=== PATIENT | female | born 1965 | race Caucasian/White ===

== ENCOUNTER 2020-08-04 15:50 | Emergency (ER) | payer MEDICARE, SELFPAY ==
--- NOTE | ~2020-08-04 | XR_ITS ---
EXAMINATION: XR CHEST CLINICAL INFORMATION: Cough and shortness of breath COMPARISON: None TECHNIQUE: Frontal view of the chest was obtained. FINDINGS: No significant abnormality is noted involving the heart, lungs, mediastinum, bony thorax or soft tissues. XR/XR chest 1V IMPRESSION: Unremarkable examination.
[2020-08-04 16:37] VITALS: BP 169/90; PULSE 68; RESP 18; TEMP 36.7; O2SAT 99; BMI 49.8
--- NOTE | 2020-08-04 16:53 | ED_ITS ---
HPI - General Adult General Chief complaint: General Medical Stated complaint: sob,cough,congestion Time Seen by Provider: 08/04/20 16:23 Source: patient Mode of arrival: ambulatory Limitations: no limitations History of Present Illness HPI narrative: 55-year-old female previously healthy here with cough which is dry, worsened at night time with no associated shortness of breath, chest pain, leg swelling or pain. Taking [id number] cough medicine since Monday with continued symptoms. Grandson at home had COVID. Wants to be tested. Related Data Previous Rx's Medication Instructions Recorded azithromycin See Rx Instructions .ROUTE 08/04/20 .COMPLEX #6 tab benzonatate [Tessalon Perles] 100 mg PO TID PRN #20 cap 08/04/20 prednisone 40 mg PO DAILY #10 tab 08/04/20 Allergies Allergy/AdvReac Type Severity Reaction Status Date / Time No Known Allergies Allergy Verified 08/04/20 16:49 Review of Systems Review of Systems: Yes all other systems are reviewed and are negative Constitutional: Constitutional: Reports no additional constitutional complaints, Denies body ache(s), Denies chills, Denies fever(s), Denies headache(s) and Denies weakness Eyes: Eyes: Reports no additional eye complaints and Denies change in vision ENT: Reports system reviewed and no additional complaints, except as documented, Denies dizziness, Denies headache(s), Denies nasal congestion, Denies nasal discharge and Denies neck pain Cardiovascular: Cardiovascular: Reports no additional cardiovascular complaints, Denies chest pain, Denies leg edema and Denies dyspnea Respiratory: Respiratory: Reports no additional respiratory complaints, Reports cough and Denies dyspnea Gastrointestinal: Gastrointestinal: Reports no additional gastrointestinal complaints, Denies abdominal pain, Denies diarrhea, Denies nausea and Denies vomiting Genitourinary: Genitourinary: Reports no additional female genitourinary complaints and Denies urinary incontinence Musculoskeletal: Musculoskeletal: Reports no additional musculoskeletal complaints, Denies back pain, Denies arthralgias, Denies joint swelling, Denies neck pain, Denies numbness and Denies tingling Integumentary/Breasts: Skin/Breast: Reports system reviewed and no additional complaints, except as docu and Denies rash Neurologic: Reports system reviewed and no additional complaints, except as documented, Denies Abnormal speech present, Denies dizziness, Denies headache(s), Denies numbness, Denies tingling and Denies weakness PMFSH Past Medical History Attestation statement: The following information was validated with the patient. Source: old records reviewed and nursing notes reviewed Medical History No known health problems Social History Social History Advance Directives: No Advance Directives Information Provided: No Patient : No Physical Exam Vital Signs: Vital Signs: Last Vital Signs Temp 98.1 F 08/04/20 16:37 Pulse 68 08/04/20 16:37 Resp 18 08/04/20 16:37 BP 169/90 H 08/04/20 16:37 Pulse Ox 99 08/04/20 16:37 Body Mass Index 49.8 Const: General: cooperative, healthy appearing, comfortable and no acute distress Orientation/consciousness: patient oriented x3 Limitations: no limitations HENMT: Head: Yes normal to inspection Ears: hearing grossly normal bilaterally General nose exam: Normal external nose present Face and sinus: Yes normal facial exam Mouth: Normal oral and palatal mucosa present Throat: Yes posterior oropharynx normal Eyes: General: appearance normal, both eyes and all related structures Pupils: Equal, round and reactive pupils present Neck: Neck: Yes normal visual inspection Chest: Chest palpation & inspection: normal inspection of the chest Resp: Effort & Inspection: normal respiratory effort Auscultation: clear to auscultation bilaterally Cardio: Rate: regular rate Rhythm: regular rhythm Peripheral pulses: Peripheral pulses 2+ throughout GI: Inspection: Yes normal to inspection Palpation (GI): Soft to palpation and nontender Auscultation: normal bowel sounds Back/Spine/Pelvis: Thoracic/Lumbar Spine: thoracic and lumbar spine normal to inspection Skin: General skin exam: no rashes or lesions noted Neuro: General: patient oriented x3, no focal motor deficits and normal sensation to monofilament Cranial nerves: Yes Equal, round and reactive pupils present Cognition (Neuro): normal cognition Speech: No Abnormal speech present Gait exam (Neuro): Normal gait present Motor exam (neuro): 5/5 motor strength present throughout Extrem: General: Yes normal to inspection, Yes no pedal edema and Yes no calf tenderness Course Course Course Narrative: 55-year-old female here with cough for the last 1-2 weeks which is dry and worsened at night time unrelieved with [id number] cough medicine. Exam is benign. Clear lung sounds. Stable vital signs. No shortness of breath or chest pain. Will check chest x-ray and COVID screen. 1800-chest x-ray shows no acute finding. COVID screen negative. Likely bronchitis. Will treat with course of antibiotics and prednisone. Patient received 2 puffs of inhaler here with improvement of symptoms. Reviewed worrisome signs and symptoms of when to return to the emergency dep artment. Comfortable discharge home. Medical Decision Making Medical Records Medical records reviewed: Yes I reviewed the patient's medical records. Lab Data Lab results reviewed: Yes I reviewed the patient's lab results. Labs: Lab Results 08/04/20 Range/Units 17:09 COVID-19 ([facility]) Negative (Negative) COVID-19 Clin Com See Note Imaging Data Chest x-ray: Attestation: I personally reviewed and interpreted this imaging study as follows: Radiologist's impression: EXAMINATION: XR CHEST CLINICAL INFORMATION: Cough and shortness of breath COMPARISON: None TECHNIQUE: Frontal view of the chest was obtained. FINDINGS: No significant abnormality is noted involving the heart, lungs, mediastinum, bony thorax or soft tissues. XR/XR chest 1V IMPRESSION: Unremarkable examination. Discharge Plan Discharge Clinical Impression: Bronchitis Patient Disposition: Home, Self-Care Instructions: Acute Bronchitis (ED) Additional Instructions: Increase fluids, rest Your COVID test was negative today. your x-ray showed no signs of pneumonia Use inhaler every 4-6 hrs as needed for cough or wheezing Prescriptions: New prednisone 20 mg tablet 40 mg PO DAILY Qty: 10 RF: 0 azithromycin 250 mg tablet See Rx Instructions .ROUTE .COMPLEX Qty: 6 RF: 0 benzonatate [Tessalon Perles] 100 mg capsule 100 mg PO TID PRN (Reason: cough) Qty: 20 RF: 0 Interventions: ED Discharge Assessment Last Done: 08/04/20 18:10 Discharge Date/Time: 08/04/20 18:10
[2020-08-04 17:42] LABS: COVID-19 Test Negative (Negative)
[2020-08-04] MEDS: Albuterol Sulfate 90 MCG 8 GM INHALER 2 PUFF INHALE (18:07)
== END 2020-08-04 18:10 | disposition home or self-care (01) ==
PROVIDERS: Nurse Practitioner Family; Emergency Provider Internal Medicine
DX: J20.9 Acute bronchitis, unspecified (principal); Z20.822 Contact with and (suspected) exposure to COVID-19
CPT/HCPCS: 36415; 71045; 87635; 99282; 99284

== ENCOUNTER 2021-04-12 11:02 | Outpatient (REF) | payer MEDICARE, MEDICAID, SELFPAY ==
[2021-04-12 12:15] LABS: Binax Internal Control QC Valid; Binax Now Covid-19 Ag Negative (Negative)
== END 2021-04-12 11:03 | disposition home or self-care (01) ==
LOC: HO.LAB 11:02
PROVIDERS: Visit Provider Internal Medicine
DX: Z20.822 Contact with and (suspected) exposure to COVID-19 (principal)
CPT/HCPCS: C9803

== ENCOUNTER 2024-01-17 17:33 | Inpatient (IN) | payer MEDICARE, MEDICAID, SELFPAY ==
--- NOTE | ~2024-01-17 | CT_ITS ---
EXAMINATION: CTA NECK WITH CONTRAST (STROKE) CTA BRAIN WITH CONTRAST (STROKE) CLINICAL INFORMATION: Suspect acute stroke. Assess for major vessel occlusion. COMPARISON: None available. TECHNIQUE: CTA of the head and neck was performed in the axial plane from the mediastinum to the skull vertex using 70 mL Omnipaque 350 intravenous contrast. Additional reformatted multiplanar images including maximum intensity projection MIP images are generated on the CT workstation. This CT examination was performed using dose optimization techniques as appropriate, variously including the following: *Automated exposure control *Adjustment of mA and/or kV according to patient size (this includes techniques or standardized protocols for targeted exams where dose is matched to indication/reason for exam; i.e. extremities or head) *Use of iterative reconstruction technique DLP: 1668 mGy-cm FINDINGS: RIGHT COMMON CAROTID ARTERY:Unremarkable without significant stenosis RIGHT INTERNAL CAROTID ARTERY:Unremarkable, aside from retropharyngeal course RIGHT VERTEBRAL ARTERY:is patent without significant stenosis. LEFT COMMON CAROTID ARTERY:Unremarkable without significant stenosis LEFT INTERNAL CAROTID ARTERY:Unremarkable, aside from retropharyngeal course LEFT VERTEBRAL ARTERY:is patent without significant stenosis. CT ANGIOGRAM OF THE HEAD: Right vertebral artery Unremarkable Left vertebral artery:Unremarkable Basilar artery:Unremarkable Left posterior cerebral artery:Unremarkable Right posterior cerebral artery:Unremarkable Anterior cerebral arteries Unremarkable Right middle cerebral artery:Unremarkable Left middle cerebral artery: Unremarkable Venous sinuses are patent. Mild degenerative disease of the cervical spine. CT/CT angio head neck stroke IMPRESSION: 1. No hemodynamically significant stenosis in the carotid or vertebral arteries in the neck. 2. No large vessel occlusion or significant stenosis within the intracranial circulation. Electronically signed by: Tracie Quiroz MD 01/17/2024 08:24 PM EDT
--- NOTE | ~2024-01-17 | MR_ITS ---
EXAMINATION: MR BRAIN WITHOUT CONTRAST CLINICAL INFORMATION: CVA COMPARISON: None available. TECHNIQUE: MRI of the brain was obtained using routine sequences without contrast. FINDINGS: Acute infarct involving the right hemipons. No hemorrhagic transformation. Scattered and confluent periventricular and deep white matter T2/FLAIR hyperintensities, nonspecific however commonly seen with small vessel ischemic disease. No midline shift or hydrocephalus. No acute extra-axial fluid collections. The osseous structures are unremarkable. The pituitary gland, pineal gland and remaining midline structures are unremarkable. No orbital pathology. Mild mucosal thickening of the paranasal sinuses. The mastoid air cells are clear. MR/MR head/brain wo con IMPRESSION: Acute infarct involving the right hemipons. No hemorrhagic transformation. Electronically signed by: Jaquelin Saini MD 01/18/2024 10:58 AM EDT
--- NOTE | ~2024-01-17 | CT_ITS ---
EXAMINATION: CT HEAD WITHOUT CONTRAST CLINICAL INFORMATION: Stroke. COMPARISON: None available. TECHNIQUE: Contiguous axial imaging was performed from the skull base to vertex without intravenous administration of contrast. This CT examination was performed using dose optimization techniques as appropriate, variously including the following: *Automated exposure control. *Adjustment of mA and/or kV according to patient size (this includes techniques or standardized protocols for targeted exams where dose is matched to indication/reason for exam; i.e. extremities or head). *Use of iterative reconstruction technique. DLP: 982 mGy-cm FINDINGS: There is no evidence of acute intracranial hemorrhage or edematous territorial infarction. [place]-white matter differentiation is preserved. Scattered and partially confluent hypoattenuation in the periventricular and deep white matter most commonly seen with mild to moderate microangiopathy. The ventricles are normal in morphology and size. No evidence for obstructive hydrocephalus. No abnormal mass effect or midline shift. No extra-axial fluid collections. Calcific atherosclerotic disease of the intracranial internal carotid and vertebral arteries. No hyperdense vessel sign. No acute soft tissue or osseous abnormalities. Mild mucosal thickening of the paranasal sinuses. The mastoid air cells and middle ear cavities are clear. CT/CT head for stroke IMPRESSION: 1. No evidence of acute intracranial hemorrhage or edematous territorial infarction. 2. Mild to moderate nonspecific white matter changes. This critical result was discussed with LANCE Alcantara at 18:18 on 01/17/2024 and it was ascertained that the content and urgency of the report was understood at the time of direct communication. Electronically signed by: Bonilla Marrero DO 01/17/2024 06:21 PM EDT
--- NOTE | 2024-01-17 17:47 | ED.GENADULT ---
HPI - General Adult General Chief complaint: Stroke Stated complaint: left side is numb Time Seen by Provider: 01/17/24 18:09 Source: patient Limitations: no limitations History of Present Illness ED Provider: Nieves Moise PA-C HPI narrative: 58-year-old female who is morbidly obese presents with left-sided weakness x4 days. Patient states she noted weakness of the left upper extremity while trying to place her hair in a ponytail. Denies concurrent facial droop, slurred speech, visual changes. Denies recent illness. No fall associated with a new onset weakness. Patient is ambulatory at baseline, she states sometimes she stumbles to the right side. This has been an ongoing issue it is not new. Related Data Previous Rx's ?Medication ?Instructions ?Recorded azithromycin 250 mg tablet See Rx Instructions PO .COMPLEX #6 08/04/20 tabs benzonatate 100 mg capsule 100 mg PO TID PRN cough #20 caps 08/04/20 (Tessalon Perlkendall) prednisone 20 mg tablet 40 mg (2 x 20 mg) PO DAILY #10 tabs 08/04/20 Allergies Allergy/AdvReac Type Severity Reaction Status Date / Time No Known Allergies Allergy Verified 01/17/24 17:51 Review of Systems Review of Systems: Yes all other systems are reviewed and are negative Constitutional: Constitutional: Denies fatigue and Denies fever(s) Cardiovascular: Cardiovascular: Denies chest pain and Denies dyspnea Respiratory: Respiratory: Denies cough and Denies dyspnea Gastrointestinal: Gastrointestinal: Denies nausea and Denies vomiting Endocrine: Endocrine: Denies fatigue PMFSH Past Medical History Attestation statement: The following information was validated with the patient. Medical History No known health problems Social History Social History Smoked in Last 30 Days: No Use of substances other than those prescribed or required for medical reasons: No Advance Directives: No Advance Directives Information Provided: No Patient : No Physical Exam ED Vital Signs: Vital Signs - 24 hr 01/17/24 17:48 01/17/24 19:29 Temperature 98.0 F 97.1 F Pulse Rate 97 62 Respiratory Rate 20 20 Blood Pressure 105/84 187/75 H Pulse Oximetry 97 96 Oxygen Delivery Method Room Air Room Air BMI result Body Mass Index 52.8 Const Other: Alert, appears older than stated age Resp Other: Nonlabored respiration Cardio Other: Normal peripheral perfusion Skin Other: Warm dry no rash Extrem Other: Strength 5/5 bilateral upper and lower extremities with resistance, patient walks with a stable, antalgic gait, no ataxia noted, Romberg negative Psych Other: Cooperative, flat affect NIH Stroke Scale Level of Consciousness: Alert Level of Consciousness Questions: Answers both questions correctly Level of Consciousness Commands: Performs both tasks correctly Best Gaze: Normal Visual: No visual loss Facial Palsy: Normal Motor Arm (Right): No drift Motor Arm (Left): No drift Motor Leg (Right): No drift Motor Leg (Left): No drift Limb Ataxia: Absent Sensory: Normal Best Language: No aphasia Dysarthia: Normal Extinction and Inattention: No abnormality Score: 0 Course Course Course Narrative: This is an RME: Additional HPI, ROS, PE not included below will be deferred to primary provider. RME assessment and note performed by: Reshma Lopez PA-C This is a 58-year-old female, with no known medical problems, who presents emergency department with complaints of left-sided weakness and left-sided facial droop since waking up yesterday morning. She states that she was tired and did not want to come into the emergency room. On my assessment, patient has notable left-sided facial droop, decreased strength in her left upper extremity and lower left extremity. +pronator drift on the left. Plan: Stroke alert. pt immediately brought back to CT and main ER. Medications Administered Discontinued Medications Generic Name Dose Route Start Last Admin Trade Name Scout PRN Reason Stop Dose Admin Iohexol 100 ml 01/17/24 18:29 01/17/24 18:29 Iohexol 350 Mg/Ml 100 Ml Infus..Btl IV 01/17/24 18:30 70 ml ONCE ONE Administration Procedures Procedure Narrative Procedure Narrative: Ultrasound-guided IV 18 gauge 1-3/4 inch catheter placed in the right upper extremity. Adequate blood return, flushes well, secured with Tegaderm Medical Decision Making Medical Decision Making MDM Narrative: 58-year-old female who is morbidly obese presents with left-sided weakness x4 days. Patient states she noted weakness of the left upper extremity while trying to place her hair in a ponytail. Denies concurrent facial droop, slurred speech, visual changes. Denies recent illness. No fall associated with a new onset weakness. Patient is ambulatory at baseline, she states sometimes she stumbles to the right side. This has been an ongoing issue it is not new. Problem: Age and obesity History: Per patient I have considered the following differential diagnoses: Stroke, musculoskeletal strain, cervical radiculopathy, gait instability secondary to habitus Plan: Patient is assessment began from triage, she was initiated as a stroke alert. She is already at CT. Screening labs and an EKG we will be obtained. I am also adding on an ethanol, urinalysis and drug screen. Patient does not have a mechanism of injury to suggest a cervical radiculopathy. The patient ambulated normally for me, I am not getting a sense of ataxia to suggest a posterior circulation CVA, and she also was not dizzy. Thus far her exam was completely benign. I have independently reviewed the following tests: Labs: EKG: Normal sinus rhythm, rate of 71, incomplete right bundle, no ischemic changes CT brain: CT HEAD WITHOUT CONTRAST CLINICAL INFORMATION: Stroke. COMPARISON: None available. TECHNIQUE: Contiguous axial imaging was performed from the skull base to vertex without intravenous administration of contrast. This CT examination was performed using dose optimization techniques as appropriate, variously including the following: *Automated exposure control. *Adjustment of mA and/or kV according to patient size (this includes techniques or standardized protocols for targeted exams where dose is matched to indication/reason for exam; i.e. extremities or head). *Use of iterative reconstruction technique. DLP: 982 mGy-cm FINDINGS: There is no evidence of acute intracranial hemorrhage or edematous territorial infarction. [place]-white matter differentiation is preserved. Scattered and partially confluent hypoattenuation in the periventricular and deep white matter most commonly seen with mild to moderate microangiopathy. The ventricles are normal in morphology and size. No evidence for obstructive hydrocephalus. No abnormal mass effect or midline shift. No extra-axial fluid collections. Calcific atherosclerotic disease of the intracranial internal carotid and vertebral arteries. No hyperdense vessel sign. No acute soft tissue or osseous abnormalities. Mild mucosal thickening of the paranasal sinuses. The mastoid air cells and middle ear cavities are clear. CT/CT head for stroke IMPRESSION: 1. No evidence of acute intracranial hemorrhage or edematous territorial infarction. 2. Mild to moderate nonspecific white matter changes. This critical result was discussed with LANCE Alcantara at 18:18 on 01/17/2024 and it was ascertained that the content and urgency of the report was understood at the time of direct communication. Electronically signed by: Bonilla Marrero DO 01/17/2024 06:[address] angio head and neck:CTA NECK WITH CONTRAST (STROKE) CTA BRAIN WITH CONTRAST (STROKE) CLINICAL INFORMATION: Suspect acute stroke. Assess for major vessel occlusion. COMPARISON: None available. TECHNIQUE: CTA of the head and neck was performed in the axial plane from the mediastinum to the skull vertex using 70 mL Omnipaque 350 intravenous contrast. Additional reformatted multiplanar images including maximum intensity projection MIP images are generated on the CT workstation. This CT examination was performed using dose optimization techniques as appropriate, variously including the following: *Automated exposure control *Adjustment of mA and/or kV according to patient size (this includes techniques or standardized protocols for targeted exams where dose is matched to indication/reason for exam; i.e. extremities or head) *Use of iterative reconstruction technique DLP: 1668 mGy-cm FINDINGS: RIGHT COMMON CAROTID ARTERY:Unremarkable without significant stenosis RIGHT INTERNAL CAROTID ARTERY:Unremarkable, aside from retropharyngeal course RIGHT VERTEBRAL ARTERY:is patent without significant stenosis. LEFT COMMON CAROTID ARTERY:Unremarkable without significant stenosis LEFT INTERNAL CAROTID ARTERY:Unremarkable, aside from retropharyngeal course LEFT VERTEBRAL ARTERY:is patent without significant stenosis. CT ANGIOGRAM OF THE HEAD: Right vertebral artery Unremarkable Left vertebral artery:Unremarkable Basilar artery:Unremarkable Left posterior cerebral artery:Unremarkable Right posterior cerebral artery:Unremarkable Anterior cerebral arteries Unremarkable Right middle cerebral artery:Unremarkable Left middle cerebral artery: Unremarkable Venous sinuses are patent. Mild degenerative disease of the cervical spine. CT/CT angio head neck stroke IMPRESSION: 1. No hemodynamically significant stenosis in the carotid or vertebral arteries in the neck. 2. No large vessel occlusion or significant stenosis within the intracranial circulation. Electronically signed by: Tracie Quiroz MD 01/17/2024 08:24 PM EDT RP Lab Data 01/17/24 19:15 01/17/24 19:15 Labs: Lab Results 01/17/24 01/17/24 01/17/24 Range/Units 18:38 18:47 19:15 WBC 9.4 (4.8-10.8) X10*3/uL RBC 4.59 (4.20-5.50) X10*6/uL Hgb 13.8 (12.0-16.0) g/dl Hct 39.1 (37.0-47.0) % MCV 85.2 (80.0-98.0) fL MCH 30.1 (27.0-33.0) pg MCHC 35.3 H (31.0-35.0) g/dl RDW 13.2 (11.0-16.0) % Plt Count 337 (160-400) X10*3/uL MPV 8.8 L (9.4-12.3) fL Immature Gran % (Auto) 0.4 (0.0-0.4) % Neut % (Auto) 63.0 (45-73) % Lymph % (Auto) 25.8 (20-40) % Braxton % (Auto) 7.5 (2-11) % Eos % (Auto) 2.7 (0-4) % Baso % (Auto) 0.6 (0-2) % Lymph # (Auto) 2.4 (1.2-4.9) X10*3/uL Braxton # (Auto) 0.7 (0.1-1.2) X10*3/uL Eos # (Auto) 0.3 (0.0-0.4) X10*3/uL Baso # (Auto) 0.1 (0.0-0.2) X10*3/uL Abs Immat Gran (auto) 0.04 H (0.00-0.03) X10*3/uL Absolute Neuts (auto) 5.9 (2.0-8.3) x10*3/uL Absolute Nucleated RBC 0.000 (0.0-0.012) X10*3/uL Nucleated RBC % (auto) 0.0 (0.0-0.2) /100WBC PT 11.7 (10.9-12.4) SEC Whole Blood PT 12.0 (11.1-13.5) sec INR 1.0 (0.9-1.1) Whole Blood INR 1.0 (0.9-1.1) APTT 29.2 (26.0-36.8) SEC Sodium 140 (135-145) mmol/L Potassium 4.1 (3.3-5.1) mmol/L Chloride 103 (96-108) mmol/L Carbon Dioxide 29 (22-29) mmol/L Anion Gap 12 (12-20) BUN 12 (9-16) mg/dL Creatinine 0.75 (0.5-1.4) mg/dL Estim Creat Clear Calc 117.1 Estimated GFR > 60 POC Glucose 149 H (60-115) mg/dL Random Glucose 115 (60-115) mg/dL Calcium 9.8 (8.4-10.2) mg/dL Troponin I High Sens < 2.7 (<3.5-17.0) ng/L Triglycerides 155 H (<150) mg/dL Cholesterol 186 (<200) mg/dL LDL Cholesterol, Calc 120 H (<100) mg/dL HDL Cholesterol 35 L (>40) mg/dL Ethyl Alcohol < 10 mg/dL Discharge Plan Discharge Clinical Impression: Left-sided weakness Patient Disposition: Admitted As Inpatient Prescriptions: No Action prednisone 20 mg tablet 40 mg PO DAILY Qty: 10 0RF azithromycin 250 mg tablet See Rx Instructions .ROUTE .COMPLEX Qty: 6 0RF Rx Instructions: take 500 mg today (day 1), then 250 mg for 4 days (days 2-5) benzonatate [Tessalon Perles] 100 mg capsule 100 mg PO TID PRN (Reason: cough) Qty: 20 0RF Print Language: Indonesian
[2024-01-17 17:48] VITALS: BP 105/84; PULSE 97; RESP 20; TEMP 36.7; O2SAT 97; BMI 52.8
--- NOTE | 2024-01-17 17:55 | ECG_ITS ---
Test Reason : stroke protool Blood Pressure : / mmHG Vent. Rate : 071 BPM Atrial Rate : 071 BPM P-R Int : 166 ms QRS Dur : 114 ms QT Int : 392 ms P-R-T Axes : 040 032 038 degrees QTc Int : 425 ms Normal sinus rhythm Incomplete right bundle branch block Borderline ECG No previous ECGs available Referred By: Reshma Lopez Electronically Signed By:Flynn Sims
[2024-01-17] MEDS: iohexoL 350 MG/ML 100 ML INFUS..BTL IV (18:29)
--- NOTE | 2024-01-17 18:31 | PC.NURSE ---
patient through external triage, patient states she has been experiencing weakness on her left side for the last 4 days. daughter states she made her aware of how she was feeling yesterday, states she was unable to get out of bed and did not want to come but convinced patient to come in. Delay in care due to patient being difficult stick, multiple attempts to obtain IV access for CT scan after dry scan, 20g IV able to be placed in left shoulder. patient with difficult time transferring onto CT scan, able to move upper extremeties, difficult time moving lower extremities.
[2024-01-17 18:53] LABS: Glucose, Whole Blood 149 mg/dL (60-115)
[2024-01-17 19:21] LABS: MANUAL DIFF FLAG NO
[2024-01-17 19:26] LABS: Basophils Absolute Auto 0.1 X10*3/uL (0.0-0.2); Basophils Percent Auto 0.6 % (0-2); Eosinophils Absolute Auto 0.3 X10*3/uL (0.0-0.4); Eosinophils Percent Auto 2.7 % (0-4); Hematocrit 39.1 % (37.0-47.0); Hemoglobin 13.8 g/dl (12.0-16.0); Imm Gran Abs Auto 0.04 X10*3/uL (0.00-0.03); Imm Gran Pct Auto 0.4 % (0.0-0.4); Lymphocytes Absolute Auto 2.4 X10*3/uL (1.2-4.9); Lymphocytes Percent Auto 25.8 % (20-40); Mean Corpuscular HGB Conc 35.3 g/dl (31.0-35.0); Mean Corpuscular Hemoglobin 30.1 pg (27.0-33.0); Mean Corpuscular Volume 85.2 fL (80.0-98.0); Mean Platelet Volume 8.8 fL (9.4-12.3); Monocytes Absolute Auto 0.7 X10*3/uL (0.1-1.2); Monocytes Percent Auto 7.5 % (2-11); Neutrophils Absolute Auto 5.9 x10*3/uL (2.0-8.3); Platelet Count 337 X10*3/uL (160-400); Red Blood Count 4.59 X10*6/uL (4.20-5.50); Red Cell Distribution Width 13.2 % (11.0-16.0); White Blood Count 9.4 X10*3/uL (4.8-10.8)
[2024-01-17 19:29] VITALS: BP 187/75; PULSE 62; RESP 20; TEMP 36.2; O2SAT 96
[2024-01-17 19:29] LABS: Prothrombin Time 11.7 SEC (10.9-12.4)
--- NOTE | 2024-01-17 19:29 | PC.NURSE ---
this rn assumed care of patient, janneth shelby at bedside placing ultrasound guided iv 20g in right upper arm. labs obtained. pt changed into hospital gown, placed on tele. pt a&ox4, reports weakness since monday. pt states she is able to get out of bed but states she is walking to the right . pt ambulated with steady and even gait to bathroom. unable to obtain urine at this time. janneth shelby aware of pt BP.
[2024-01-17 19:32] LABS: Partial Thromboplastin Time 29.2 SEC (26.0-36.8)
[2024-01-17 19:37] LABS: Stroke Lab Use COMPLETE
[2024-01-17 19:45] LABS: Ethanol < 10 mg/dL
[2024-01-17 19:47] LABS: Anion Gap 12 (12-20); Blood Urea Nitrogen 12 mg/dL (9-16); Calcium 9.8 mg/dL (8.4-10.2); Carbon Dioxide 29 mmol/L (22-29); Chloride 103 mmol/L (96-108); Cholesterol 186 mg/dL (<200); Creatinine Clr Calc Pharmacy 117.1; Estimated Glomerular Filt Rate > 60; Glucose Random 115 mg/dL (60-115); HDL Cholesterol 35 mg/dL (>40); LDL Cholesterol Calculated 120 mg/dL (<100); Potassium 4.1 mmol/L (3.3-5.1); Sodium 140 mmol/L (135-145); Triglycerides 155 mg/dL (<150)
[2024-01-17 19:55] LABS: Troponin-I High Sensitivity < 2.7 ng/L (<3.5-17.0)
--- NOTE | 2024-01-17 20:34 | P.HPHOSP_ITS ---
History of Present Illness Date of Service: 01/17/24 <[address] - Last Filed: 01/17/24 21:54> Attending physician on admission: Delgado Mcbride <LANCE Street - Last Filed: 01/17/24 21:54> Chief Complaint: Left-sided numbness and weakness <LANCE Street - Last Filed: 01/17/24 21:54> Pt is a 58-year-old female with no reported significant PMH not on home meds who presents to the ED with?left-sided weakness. Pt reports symptoms began on Monday when she put her hair into a ponytail and thinks she pulled a muscle in either her back or neck. Woke up on Monday with pain in the back of her neck and shoulder that was alleviated with massaging. On Monday patient woke and found she had left-sided weakness. Reports ?walking into everything, since Monday, including walters, doors, and furniture. Today patient found she could not get out of her car due to left-sided weakness, and thus decided to present to the emergency room. Denies difficulty speaking, swelling, or facial droop. No numbness or tingling in extremities. Denies headache or acute vision changes. No dysarthria or difficulty word finding. 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 No chest pain/pressure, palpitations. No shortness a breath or difficulty breathing. Denies fever, chills, nausea, vomiting, abdominal pain. No changes to bowel or bladder habits. In the ED pt was hypertensive up to 187/75, vitals otherwise stable and WNL. Labs were significant for mildly elevated triglycerides, LDL, and low HDL. No leukocytosis. Stable H&H. No electrolyte abnormalities. Renal function WNL. CT?of head negative for acute intracranial hemorrhage or edematous territorial infarction, though did show [id number] nonspecific white matter changes. CTA of head/neck found no hemodynamically significant stenosis and no large vessel occlusion in either head or neck. EKG demonstrated normal sinus rhythm without significant ST elevations or depressions. Pt will be admitted to the hospital for left-sided weakness concerning for CVA. <LANCE Street - Last Filed: 01/17/24 21:54> Review of Systems 2 Review of Systems: Yes all other systems are reviewed and are negative < LANCE Street - Last Filed: 01/17/24 21:54> [facility] Medical History: Medical History No known health problems <LANCE Street - Last Filed: 01/17/24 21:54> Social History: Social History Smoked in Last 30 Days: No Use of substances other than those prescribed or required for medical reasons: No Advance Directives: No Advance Directives Information Provided: No Patient : No <LANCE Street - Last Filed: 01/17/24 21:54> Meds Allergies/Adverse reactions: Allergies Allergy/AdvReac Type Severity Reaction Status Date / Time No Known Allergies Allergy Verified 01/17/24 17:51 <[address] - Last Filed: 01/17/24 21:54> Active Medications: Current Medications Acetaminophen (Acetaminophen 325 Mg Tablet) 650 mg PO Q6H PRN PRN Reason: Pain, Mild (Pain Scale 1-3), fever or headache Aspirin (Aspirin 81 Mg Tab.Chew) 81 mg PO ONCE ONE Stop: 01/17/24 20:30 Aspirin (Aspirin 81 Mg Tab.Chew) 81 mg PO DAILY [facility] Atorvastatin Calcium (Atorvastatin Calcium 40 Mg Tablet) 40 mg PO BEDTIME [facility] Calcium Carbonate (Calcium Carbonate 750 Mg Tab.Chew) 750 mg PO Q4H PRN PRN Reason: Heartburn Enoxaparin Sodium (Enoxaparin Sodium 40 Mg/0.4 Ml Syringe) 40 mg SUBCUT Q24H [facility] Magnesium Hydroxide (Milk Of Magnesia 30 Ml Oral.Susp) 30 ml PO DAILY PRN PRN Reason: Constipation Melatonin (Melatonin 3 Mg Tablet) 6 mg PO BEDTIME PRN PRN Reason: Insomnia Ondansetron HCl (Ondansetron Hcl 4 Mg/2 Ml Vial) 4 mg IVPUSH Q8H PRN PRN Reason: Nausea and Vomiting Sodium Chloride (0.9 % Sodium Chloride Flush 3 Ml Syringe) 3 ml IVFLUSH QSHIFT DAVIE <LANCE Street - Last Filed: 01/17/24 21:54> Home medications: Home Medications ?Medication ?Instructions ?Recorded ?Confirmed ?Last Taken ?Type No Known Home Meds 01/17/24 01/17/24 Unknown History <LANCE Street - Last Filed: 01/17/24 21:54> Physical Exam 2 Vital Signs and Narrative: Vital Signs: Last Vital Signs Temp 97.1 F 01/17/24 19:29 Pulse 62 01/17/24 19:29 Resp 20 01/17/24 19:29 BP 187/75 H 01/17/24 19:29 Pulse Ox 96 01/17/24 19:29 O2 Del Method Room Air 01/17/24 19:29 BMI result Body Mass Index 52.8 <[address] - Last Filed: 01/17/24 21:54> Constitutional: Alert, in no acute distress. Mental Status: Oriented to person, place and time. Eyes: Pupils are equal, round, and reactive to light. Ear, Nose, and Throat: Oropharynx clear, mucous membranes moist. Ears and nose without deformities. Trachea midline. Respiratory: Clear to auscultation bilaterally. No wheezing, rales, or rhonchi. Cardiovascular: S1, S2 regular. No murmurs, rubs, or gallops. Gastrointestinal: Abdomen soft, non-tender, non-distended, obese. Normal bowel sounds. Neurologic: Left-sided weakness of upper and lower extremities. Positive left pronator drift. Preserved sensation to light touch of upper and lower extremities bilaterally. No other focal deficits noted. Skin: Warm, dry. Musculoskeletal: No cyanosis or clubbing. Extremities: Bilateral symmetric lymphedema. Chronic right upper extremity contracture of 3rd-5th digits. Psychiatric: Normal mood and affect. <LANCE Street - Last Filed: 01/17/24 21:54> Results Labs CBC and Chem 7: 01/17/24 19:15 01/17/24 19:15 <[address] - Last Filed: 01/17/24 21:54> Labs: Laboratory Results - last 24 hr 01/17/24 01/17/24 01/17/24 18:38 18:47 19:15 MCV 85.2 MCH 30.1 MCHC 35.3 H RDW 13.2 Plt Count 337 MPV 8.8 L Immature Gran % (Auto) 0.4 Neut % (Auto) 63.0 Lymph % (Auto) 25.8 [place] % (Auto) 7.5 Eos % (Auto) 2.7 Baso % (Auto) 0.6 Lymph # (Auto) 2.4 [place] # (Auto) 0.7 Eos # (Auto) 0.3 Baso # (Auto) 0.1 Abs Immat Gran (auto) 0.04 H Absolute Neuts (auto) 5.9 Absolute Nucleated RBC 0.000 Nucleated RBC % (auto) 0.0 PT 11.7 Whole Blood PT 12.0 INR 1.0 Whole Blood INR 1.0 APTT 29.2 Anion Gap 12 Estim Creat Clear Calc 117.1 Estimated GFR > 60 POC Glucose 149 H Random Glucose 115 Calcium 9.8 Troponin I High Sens < 2.7 Triglycerides 155 H Cholesterol 186 LDL Cholesterol, Calc 120 H HDL Cholesterol 35 L Ethyl Alcohol < 10 <[address] - Last Filed: 01/17/24 21:54> Imaging Radiologist's Impressions: Impressions Head CT 01/17/24 18:00 IMPRESSION: 1. No evidence of acute intracranial hemorrhage or edematous territorial infarction. 2. Mild to moderate nonspecific white matter changes. This critical result was discussed with LANCE Alcantara at 18:18 on 01/17/2024 and it was ascertained that the content and urgency of the report was understood at the time of direct communication. Electronically signed by: Bonilla Marrero DO 01/17/2024 06:21 PM EDT RP Head/Neck CTA 01/17/24 18:22 IMPRESSION: 1. No hemodynamically significant stenosis in the carotid or vertebral arteries in the neck. 2. No large vessel occlusion or significant stenosis within the intracranial circulation. Electronically signed by: Tracie Quiroz MD 01/17/2024 08:24 PM EDT RP <LANCE Street - Last Filed: 01/17/24 21:54> Assessment and Plan (1) Left-sided weakness: Status: Acute <LANCE Street - Last Filed: 01/17/24 21:54> Pt is a 58-year-old female with no reported significant PMH not on home meds who presents to the ED with?left-sided weakness. Pt will be admitted to the hospital for left-sided weakness concerning for CVA. Left-sided weakness Pt with ataxia, left-sided weakness x2 days, +pronator drift Concerning for CVA CT and CTA of head/neck negative Lipid profile mildly elevated Will start on aspirin, atorvastatin Will get MRI of head/brain Echocardiogram with bubble study Pt/OT evaluation Neurology consult Cardiac diet Monitor on telemetry HTN Not on home antihypertensives Will allow for permissive HTN for SBP <180 Full Code Attending:?Dr. Mcbride DVT Prophylaxis: Lovenox Pt will require a hospitalization of at least two nights for treatment of?left- sided weakness concerning for CVA that will require additional imaging, workup, and specialist consult with neurology and PT/OT for safe disposition home. < LANCE Street - Last Filed: 01/17/24 21:54> Pt is a 58-year-old female with no reported significant PMH not on home meds who presents to the ED with?left-sided weakness. Pt will be admitted to the hospital for left-sided weakness concerning for CVA. Left-sided weakness Pt with ataxia, left-sided weakness x2 days, +pronator drift Concerning for CVA CT and CTA of head/neck negative Lipid profile mildly elevated Will start on aspirin, atorvastatin Will get MRI of head/brain Echocardiogram with bubble study Pt/OT evaluation Neurology consult Cardiac diet Monitor on telemetry HTN Not on home antihypertensives Will allow for permissive HTN for SBP <220 Full Code Attending:?Dr. Mcbride DVT Prophylaxis: Lovenox Pt will require a hospitalization of at least two nights for treatment of?left- sided weakness concerning for CVA that will require additional imaging, workup, and specialist consult with neurology and PT/OT for safe disposition home. < Delgado Mcbride MD - Last Filed: 01/17/24 22:28> Quality Stroke Does the patient have a stroke diagnosis?: No <LANCE Street - Last Filed: 01/17/24 21:54> Reason for No Anti-thrombotic by Day Two: Contraindicated (Last known well time 48+ hours ago.) <LANCE Street - Last Filed: 01/17/24 21:54> VTE Prior VTE?: No <LANCE Street - Last Filed: 01/17/24 21:54> VTE Risk Level:: Medical - moderate - high <LANCE Street - Last Filed: 01/17/24 21:54> VTE Device Contraindication: Treatment Not Indicated <LANCE Street - Last Filed: 01/17/24 21:54> VTE Drug Contraindication: N/A - Med Ordered <LANCE Street - Last Filed: 01/17/24 21:54>
[2024-01-17] MEDS: Aspirin 81 MG TAB.CHEW PO (20:46)
[2024-01-17] MEDS: Enoxaparin Sodium 40 MG/0.4 ML SYRINGE SUBCUT (20:46)
[2024-01-17] MEDS: Atorvastatin Calcium 40 MG TABLET PO (20:46)
--- NOTE | 2024-01-17 20:46 | PC.NURSE ---
bedside swallow evaluation completed by this rn. pt passed. pt medicated per may. dr.vali forbes.
[2024-01-17 20:47] LABS: Appearance Urine Cloudy; Color Urine Yellow; Glucose Urine UA Negative (Negative); Leukocyte Esterase Urine Trace (Negative); Nitrite Urine Negative (Negative); UMIC TRIGGER UACC YES; Urine Blood Large (3+) (Negative); Urine Ketones Negative (Negative); Urine Protein Trace mg/dL (Neg-Trace)
[2024-01-17 20:51] LABS: Amphetamine Screen Urine Not Detected (Not Detect); Barbiturates, Urine Not Detected (Not Detect); Benzodiazepines Screen Urine Not Detected (Not Detect); Buprenorphine Scr Not Detected (Not Detect); Cannabinoid Screen Urine Not Detected (Not Detect); Cocaine Screen Urine Not Detected (Not Detect); Fentanyl, urine Not Detected (Not Detect); Methadone Screen, Urine Not Detected (Not Detect); Opiate Screen Urine Not Detected (Not Detect); Oxycodone Screen Urine Not Detected (Not Detect); Phencyclidine Screen Urine Not Detected (Not Detect)
--- NOTE | 2024-01-17 20:59 | PHA.MEDREC ---
Addendum entered by Emerson Schilling RPh 01/17/24 21:06: Reviewed by [facility]. Original Note: Pharmacy Consult ? Medication Reconciliation Pharmacy has completed the medication reconciliation. Patient confirmed she is not taking anything and states she has not taken anything in a while .
[2024-01-17 21:06] LABS: Bacteria Urine 4+ (None Seen); Hyaline Casts Urine 0-2 /LPF (0-2); UACC Culture Trigger YES
[2024-01-17 21:49] VITALS: BP 179/92; PULSE 66; RESP 20; TEMP 37.2; O2SAT 96
--- NOTE | 2024-01-17 22:24 | PC.NURSE ---
dr fox aware of high BP, no new orders at this time.
--- NOTE | 2024-01-17 23:23 | PC.NURSE ---
pt ambulatory with steady gait to bathroom.
[2024-01-17 23:59] VITALS: BP 184/83; RESP 18; TEMP 36.4; O2SAT 96
[2024-01-18] VITALS (7 sets, daily range): BP systolic 102–181; BP diastolic 58–79; PULSE 55–103; RESP 12–20; TEMP 36.1–36.4; O2SAT 94–100; BMI 52.6
[2024-01-18] MEDS: 0.9 % Sodium Chloride Flush 3 ML SYRINGE IVFLUSH ×4 (00:04→21:14)
[2024-01-18 06:15] LABS: Hematocrit 41.4 % (37.0-47.0); Hemoglobin 14.5 g/dl (12.0-16.0); Mean Corpuscular Hemoglobin 30.2 pg (27.0-33.0); Mean Corpuscular Volume 86.3 fL (80.0-98.0); Mean Platelet Volume 8.9 fL (9.4-12.3); Platelet Count 305 X10*3/uL (160-400); Red Cell Distribution Width 13.1 % (11.0-16.0)
[2024-01-18 06:32] LABS: Anion Gap 13 (12-20); Blood Urea Nitrogen 11 mg/dL (9-16); Calcium 9.5 mg/dL (8.4-10.2); Carbon Dioxide 25 mmol/L (22-29); Chloride 106 mmol/L (96-108); Creatinine Clr Calc Pharmacy 115.3; Estimated Glomerular Filt Rate > 60; Glucose Random 148 mg/dL (60-115); Potassium 3.9 mmol/L (3.3-5.1); Sodium 140 mmol/L (135-145)
[2024-01-18 07:27] LABS: Estimated Average Glucose 128 mg/dL; Hemoglobin A1C 154.2417 umol/L; Hemoglobin A1c % 6.1 % (<6.0); Total Hemoglobin (HGBA1C) 3539.1017 umol/L
--- NOTE | 2024-01-18 08:49 | P.PNIM_ITS ---
Subjective Subjective Date of Service: 01/18/24 Interval History: Still with some left-sided weakness Physical Exam 2 Vital Signs: Vital Signs: Last Vital Signs Temp 97.0 F 01/18/24 08:00 Pulse 55 01/18/24 08:00 Resp 20 01/18/24 08:00 BP 165/68 H 01/18/24 08:00 Pulse Ox 97 01/18/24 08:00 O2 Del Method Room Air 01/18/24 08:00 BMI result Body Mass Index 52.6 mild left weakness Objective Data Active Medications Acetaminophen (Acetaminophen 325 Mg Tablet) 650 mg PO Q6H PRN PRN Reason: Pain, Mild (Pain Scale 1-3), fever or headache Aspirin (Aspirin 81 Mg Tab.Chew) 81 mg PO DAILY [facility] Atorvastatin Calcium (Atorvastatin Calcium 40 Mg Tablet) 40 mg PO BEDTIME [facility] Last Admin: 01/17/24 20:46 Dose: 40 mg Documented By: GERARD Calcium Carbonate (Calcium Carbonate 750 Mg Tab.Chew) 750 mg PO Q4H PRN PRN Reason: Heartburn Enoxaparin Sodium (Enoxaparin Sodium 40 Mg/0.4 Ml Syringe) 40 mg SUBCUT Q24H [facility] Last Admin: 01/17/24 20:46 Dose: 40 mg Documented By: GERARD Magnesium Hydroxide (Milk Of Magnesia 30 Ml Oral.Susp) 30 ml PO DAILY PRN PRN Reason: Constipation Melatonin (Melatonin 3 Mg Tablet) 6 mg PO BEDTIME PRN PRN Reason: Insomnia Nystatin (Nystatin Powder 15 Gm Bottle) 1 appl TOPICAL TID [facility]; Protocol Ondansetron HCl (Ondansetron Hcl 4 Mg/2 Ml Vial) 4 mg IVPUSH Q8H PRN PRN Reason: Nausea and Vomiting Sodium Chloride (0.9 % Sodium Chloride Flush 3 Ml Syringe) 3 ml IVFLUSH QSHIFT [facility] Last Admin: 01/18/24 00:04 Dose: 3 ml Documented By: NATALIE Labs 01/18/24 06:02 01/18/24 06:02 Labs: Laboratory Results - last 24 hr 01/17/24 01/17/24 01/17/24 18:38 18:47 19:15 MCV 85.2 MCH 30.1 MCHC 35.3 H RDW 13.2 Plt Count 337 MPV 8.8 L Immature Gran % (Auto) 0.4 Neut % (Auto) 63.0 Lymph % (Auto) 25.8 [place] % (Auto) 7.5 Eos % (Auto) 2.7 Baso % (Auto) 0.6 Lymph # (Auto) 2.4 [place] # (Auto) 0.7 Eos # (Auto) 0.3 Baso # (Auto) 0.1 Abs Immat Gran (auto) 0.04 H Absolute Neuts (auto) 5.9 Absolute Nucleated RBC 0.000 Nucleated RBC % (auto) 0.0 PT 11.7 Whole Blood PT 12.0 INR 1.0 Whole Blood INR 1.0 APTT 29.2 Anion Gap 12 Estim Creat Clear Calc 117.1 Estimated GFR > 60 POC Glucose 149 H Random Glucose 115 Estimat Average Glucose Hemoglobin A1c % Calcium 9.8 Troponin I High Sens < 2.7 Triglycerides 155 H Cholesterol 186 LDL Cholesterol, Calc 120 H HDL Cholesterol 35 L Urine Color Urine Appearance Urine pH Ur Specific [place] Urine Protein Urine Glucose (UA) Urine Ketones Urine Blood Urine Nitrite Ur Leukocyte Esterase Urine RBC Urine WBC Ur Squamous Epith Cells Urine Bacteria Hyaline Casts Urine Opiates Screen Ur Buprenorphine Scrn Ur Oxycodone Screen Urine Methadone Screen Urine Fentanyl Screen Ur Barbiturates Screen Ur Phencyclidine Scrn Ur Amphetamines Screen U Benzodiazepines Scrn Urine Cocaine Screen U Marijuana (THC) Screen Ethyl Alcohol < 10 01/17/24 01/18/24 20:32 06:02 MCV 86.3 MCH 30.2 MCHC 35.0 RDW 13.1 Plt Count 305 MPV 8.9 L Immature Gran % (Auto) Neut % (Auto) Lymph % (Auto) [place] % (Auto) Eos % (Auto) Baso % (Auto) Lymph # (Auto) [place] # (Auto) Eos # (Auto) Baso # (Auto) Abs Immat Gran (auto) Absolute Neuts (auto) Absolute Nucleated RBC 0.000 Nucleated RBC % (auto) 0.0 PT Whole Blood PT INR Whole Blood INR APTT Anion Gap 13 Estim Creat Clear Calc 115.3 Estimated GFR > 60 POC Glucose Random Glucose 148 H Estimat Average Glucose 128 Hemoglobin A1c % 6.1 H Calcium 9.5 Troponin I High Sens Triglycerides Cholesterol LDL Cholesterol, Calc HDL Cholesterol Urine Color Yellow Urine Appearance Cloudy Urine pH 7.0 Ur Specific [place] 1.010 Urine Protein Trace Urine Glucose (UA) Negative Urine Ketones Negative Urine Blood Large (3+) H Urine Nitrite Negative Ur Leukocyte Esterase Trace H Urine RBC 11-20 H Urine WBC 6-10 H Ur Squamous Epith Cells 3-5 Urine Bacteria 4+ Hyaline Casts 0-2 Urine Opiates Screen Not Detected Ur Buprenorphine Scrn Not Detected Ur Oxycodone Screen Not Detected Urine Methadone Screen Not Detected Urine Fentanyl Screen Not Detected Ur Barbiturates Screen Not Detected Ur Phencyclidine Scrn Not Detected Ur Amphetamines Screen Not Detected U Benzodiazepines Scrn Not Detected Urine Cocaine Screen Not Detected U Marijuana (THC) Screen Not Detected Ethyl Alcohol Assessment and Plan (1) Left-sided weakness: Status: Acute Plan 58F PMH morbid obesity presented with left-sided weakness Left-sided weakness Rule out TIA/CVA, follow up MRI, neuro Continue aspirin statin Echo PT/OT Elevated blood pressures Permissive hypertension for now Morbid obesity Weight loss recommended DVT prophylaxis with Lovenox Full Code reason for continued hospitalization: Stroke workup ongoing Quality Stroke Does the patient have a stroke diagnosis?: No Reason for No Anti-thrombotic by Day Two: Contraindicated (Last known well time 48+ hours ago.) VTE Prior VTE?: No VTE Risk Level:: Medical - moderate - high VTE Device Contraindication: Treatment Not Indicated VTE Drug Contraindication: N/A - Med Ordered
[2024-01-18] MEDS: Aspirin 81 MG TAB.CHEW PO (09:16)
--- NOTE | 2024-01-18 10:45 | MHC.CM.PN ---
IMM 01/18/24, Pt. lives with her and children, she is independent, no home health services. She said that she has been to [facility] in the past, not in this area, in [place], [place] where she used to live. HCP is her sister, Desi, form to be completed here and added to chart. She does not use DME. She can arrange transport home at DC. PCP confirmed: Camilla Poe. DCP is TBD. CM to follow and assist with DC plan.
--- NOTE | 2024-01-18 12:41 | PM.NEUROCN ---
History of Present Illness Data of Consult Service Date: 01/18/24 Primary Care Provider: Camilla Poe MD [facility] Reason for consult: Stroke 58 years old woman who came to hospital with new onset of left-sided weakness that started more than a day before she came to hospital. There was no associated nausea or vomiting or double vision or headache. Review of Systems Review of Systems: No recent cold or flu-like illness PMFSH Past Medical History Medical History No known health problems Social History Social History Household Members: Spouse and Family Housing: House Do you presently have visiting nurse or other home services: No Patient Tobacco Use Status: Never used Tobacco service: No Meds Allergies Allergy/AdvReac Type Severity Reaction Status Date / Time No Known Allergies Allergy Verified 01/17/24 17:51 Active Medications: Current Medications Acetaminophen (Acetaminophen 325 Mg Tablet) 650 mg PO Q6H PRN PRN Reason: Pain, Mild (Pain Scale 1-3), fever or headache Aspirin (Aspirin 81 Mg Tab.Chew) 81 mg PO DAILY [facility] Last Admin: 01/18/24 09:16 Dose: 81 mg Atorvastatin Calcium (Atorvastatin Calcium 40 Mg Tablet) 40 mg PO BEDTIME [facility] Last Admin: 01/17/24 20:46 Dose: 40 mg Calcium Carbonate (Calcium Carbonate 750 Mg Tab.Chew) 750 mg PO Q4H PRN PRN Reason: Heartburn Enoxaparin Sodium (Enoxaparin Sodium 40 Mg/0.4 Ml Syringe) 40 mg SUBCUT Q24H [facility] Last Admin: 01/17/24 20:46 Dose: 40 mg Magnesium Hydroxide (Milk Of Magnesia 30 Ml Oral.Susp) 30 ml PO DAILY PRN PRN Reason: Constipation Melatonin (Melatonin 3 Mg Tablet) 6 mg PO BEDTIME PRN PRN Reason: Insomnia Nystatin (Nystatin Powder 15 Gm Bottle) 1 appl TOPICAL TID [facility]; Protocol Last Admin: 01/18/24 09:28 Dose: Not Given Ondansetron HCl (Ondansetron Hcl 4 Mg/2 Ml Vial) 4 mg IVPUSH Q8H PRN PRN Reason: Nausea and Vomiting Sodium Chloride (0.9 % Sodium Chloride Flush 3 Ml Syringe) 3 ml IVFLUSH QSHIFT [facility] Last Admin: 01/18/24 09:16 Dose: 3 ml Home Medications ?Medication ?Instructions ?Recorded ?Confirmed ?Last Taken ?Type No Known Home Meds 01/17/24 01/17/24 Unknown History Physical Exam Vital Signs: Vital Signs: Last Vital Signs Temp 97.1 F 01/18/24 11:27 Pulse 61 01/18/24 11:27 Resp 18 01/18/24 11:27 BP 157/68 H 01/18/24 11:27 Pulse Ox 98 01/18/24 11:27 O2 Del Method Room Air 01/18/24 11:27 BMI result Body Mass Index 52.6 Neuro: Other: She is alert and awake with normal spontaneity of speech fluency comprehension and flat affect. There is minimal left-sided facial flatness and moderate to severe left arm weakness and minimal left leg weakness. Plantars are flexor. There is no visual or sensory extinction. Speech is normal. Results Labs 01/18/24 06:02 01/18/24 06:02 Labs: Short CBC 01/17/24 01/18/24 Range/Units 19:15 06:02 WBC 9.4 8.0 (4.8-10.8) X10*3/uL Hgb 13.8 14.5 (12.0-16.0) g/dl Hct 39.1 41.4 (37.0-47.0) % Plt Count 337 305 (160-400) X10*3/uL BMP 01/17/24 01/18/24 19:15 06:02 Sodium 140 140 Potassium 4.1 3.9 Chloride 103 106 Carbon Dioxide 29 25 BUN 12 11 Creatinine 0.75 0.76 Calcium 9.8 9.5 Urine 01/17/24 Range/Units 20:32 Urine Color Yellow Urine Appearance Cloudy Urine pH 7.0 (5.0-9.0) Ur Specific [place] 1.010 (1.005-1.025) Urine Protein Trace (Neg-Trace) mg/dL Urine Glucose (UA) Negative (Negative) mg/dL MRI of brain revealed a large right pontine acute ischemic infarction and few similar smaller chronic ischemic infarction cerebral cortex. Microbiology Microbiology Results: Microbiology 01/17/24 20:35 Urine clean catch - Clean Catch Midstream Urine Culture - Preliminary Culture too young to evaluate. 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 This type of strokes or usually atherothrombotic related to typical risk factors of hypertension hypercholesterolemia in genetic factors. Rarely they are embolic in nature. At this time my recommendation is continue dual anti-platelet therapy, statin, PT OT, and blood pressure control. Procedures Date of Service Date of Service: 01/18/24
--- NOTE | 2024-01-18 13:00 | CA_ITS ---
Transthoracic Echocardiogram Patient (Last, First, Middle): Barbara Bowers, Gender: Female Date of : 1965 Age: 58 Procedure Date: 01/18/2024 Procedure Type: Transthoracic [place] [facility] [place]: 162.56 cm Weight: 138.8 kg BSA: 2.34 m2 Heart Rate: 65 bpm BP: 165 / 68 mmHg Steam Room Attendant: SB Referring MD: Siria LUCAS Symptoms: CVA Study Quality: Fair ECG Rhythm: Sinus Conclusions: - Normal left ventricular size and systolic function. There is mildly increased left ventricular wall thickness. The visually estimated ejection fraction is between 60-65%. - Normal right ventricular cavity size and systolic function. - There is mild dilatation of the sinuses of Valsalva measuring 3.60 cm and mild dilatation of the ascending aorta measuring 3.30 cm. Findings Procedure Information Contrast agent, definity, is being given per protocol without apparent complications. The quality of the study was technically difficult. The study quality is limited by patients body habitus. Left Ventricle Normal left ventricular size and systolic function. There is mildly increased left ventricular wall thickness. The visually estimated ejection fraction is between 60-65%. Abnormal diastolic function is noted. Spectral Doppler is indicative of a pseudonormal filling pattern. E/E prime ratio is between 8 and 15 consistent with indeterminate filling pressures. Right Ventricle Normal right ventricular cavity size and systolic function. Atria The left atrium is normal in size. The right atrium is likely dilated. Aortic Valve Normal aortic valve structure and function. There is no aortic valve stenosis. There is no aortic valve regurgitation. Mitral Valve The mitral valve appears normal. There is no mitral valve regurgitation. There is no mitral valve stenosis. Pulmonic Valve The pulmonic valve is likely normal. Tricuspid Valve Normal tricuspid valve structure. There is trace tricuspid valve regurgitation. Tricuspid regurgitation envelope is inadequate for calculation of right ventricular systolic pressure. Normal right atrial pressure. Great Vessels There is mild dilatation of the sinuses of Valsalva measuring 3.60 cm and mild dilatation of the ascending aorta measuring 3.30 cm. The visualized portions of the pulmonary artery and branches are normal. Venous The inferior vena cava is normal in size and collapses greater than 50% with inspiration. Pericardium/Pleural There is no evidence of pericardial effusion. Prior Study Comparison No prior study available for comparison. Measurements 2D Linear Measurements IVSd: 1.29 0.6-0.9/0.6-1.0 cm LVIDd: 4.98 3.9-5.3/4.2-5.9 cm LVIDd Index: 2.13 2.4-3.2/2.2-3.1 cm/m2 LVIDs: 3.24 2.0-3.6 cm LVPWd: 0.99 0.7-1.1 cm LA Diam: 4.50 2.7-3.8/3.0-4.0 cm LAIDs Index: 1.92 1.5-2.3 cm/m2 LV Mass: 269.85 67-162/88-224 g LV Mass Index: 115.32 43-95/49-115 g/m2 LVOT Diam: 2.20 3.0+(-)1.3 cm 2D Systolic Function EF 4C: 59.70 >55% EF 2C: 73.20 >55% EF BiP: 66.00 >55% Mitral Valve MV Pk E: 0.84 MV PK A: 0.77 MV Decel Time: 234.00 E/A: 1.10 E'Lateral: 7.51 E'Medial: 7.40 E/E' Med: 11.40 E/E' Lat: 11.20 PHT: 68.00 MVA PHT: 3.24 Decel [place]: 3.61 Aortic Valve AoV Pk Akil: 1.50 AoV Pk Grad: 9.00 JOE: 2.55 LVOT LVOT Pk Akil: 0.99 LVOT Mn Akil: 0.76 LVOT VTI: 0.22 LVOT Pk Grad: 4.00 LVOT Mn Grad: 2.00 LVOT Diam: 2.20 LVOT Area: 3.80 Diastolic Function MV Pk E: 0.84 MV Pk A: 0.77 E/A: 1.10 E'Medial: 7.40 E/E' Med: 11.40 E' Laterial: 7.51 E/E' Lat: 11.20 Right Ventricle TAPSE (mm): 29.30 TVS' Akil: 12.90 Tricuspid Valve RA Press: 3.00 Great Vessels Aorta Sinus of Valsalva: 3.60 2.0-3.5 cm Ao Asc: 3.30 2.1-3.4 cm Ao Arch: 2.80 Pulmonary Valve PV Pk Akil: 1.00 Peak PV Grad: 4.00 Updated in Other Vendor System with Status of Final Flynn Sims MD electronically signed on 01/18/2024 7:42:59 PM with status of Final
--- NOTE | 2024-01-18 14:42 | MHC.SL.SWA ---
Speech Pathologist Impression: Risk of Aspiration Due to: Neurological Condition Dysphasia Diet Status: Liquid Consistency and Strategies for Safe Swallow: Liquid Intake Recommendation: Thin Liquid Intake Strategies: Small Sips Solid Food Consistency: Dietary Recommendations: Regular Additional Modifications to Solid Foods: Encourage patient to elect softer foods from regular menu. Oral Medication Intake: Whole with Liquid Please contact the pharmacy regarding appropriate crushable or liquid drug formulations that are available whenever modified delivery is recommended. Compensatory Strategies and Precautions to be Taken for Safe Swallow: Sitting Upright (90 deg) Liquids from Cup Liquids from Straw Alternate Liquids/Solids Supervision While Eating and Drinking for Safe Swallow: Intermittent Supervision Foods to Avoid: tough, crunchy textures. Swallowing Recommended Treatments: Compens. Strategy Educat. Recommendation for Speech: Inpatient Speech Therapy Comment: Patient presents with oral motor and swallow function mostly WFL, however has poor dentition and elects to eat softer foods. Patient reports no change to speech or difficulty expressing self. Patient placed on regular diet by this a.m., recommend patient continue on this diet, with encouragement to select softer foods from the menu, Thin liquids, pills whole with liquid. ALICE BUCHANAN notified of recommendation by secure text, RN in person. COMPUTER FORENSICS EXAMINER to follow up one time for toleration. Frequency/Duration: Date Range for Service Req: Timeline to reassess: Water Hauler Clinican/Clinical Fellow: No Supervisory Statement: I have reviewed and agree with the student/clinical fellow's documentation: N/A Speech Language Pathologist: Yesi Perry M.A., CCC-COMPUTER FORENSICS EXAMINER
[2024-01-18] MEDS: Nystatin Powder 15 GM BOTTLE 1 APPL TOPICAL ×2 (17:40→21:14)
[2024-01-18] MEDS: Enoxaparin Sodium 40 MG/0.4 ML SYRINGE SUBCUT (21:13)
[2024-01-18] MEDS: Atorvastatin Calcium 40 MG TABLET PO (21:14)
[2024-01-19] VITALS (9 sets, daily range): BP systolic 136–189; BP diastolic 64–82; PULSE 57–88; RESP 12–18; TEMP 36.2–37.2; O2SAT 96–100
[2024-01-19] MEDS: amLODIPine Besylate 5 MG TABLET PO (08:49)
[2024-01-19] MEDS: Aspirin 81 MG TAB.CHEW PO (08:49)
[2024-01-19] MEDS: Nystatin Powder 15 GM BOTTLE 1 APPL TOPICAL ×2 (08:50→17:29)
[2024-01-19] MEDS: 0.9 % Sodium Chloride Flush 3 ML SYRINGE IVFLUSH ×3 (08:50→20:57)
--- NOTE | 2024-01-19 09:35 | HO.PM.IMPN ---
Subjective Subjective Date of Service: 01/19/24 Interval History: Still with some left-sided weakness Physical Exam Vital Signs: Vital Signs: Last Vital Signs Temp 97.6 F 01/19/24 08:08 Pulse 63 01/19/24 08:08 Resp 18 01/19/24 08:08 BP 189/77 H 01/19/24 08:08 Pulse Ox 98 01/19/24 08:08 O2 Del Method Room Air 01/19/24 08:08 O2 Flow Rate 4 01/18/24 21:34 BMI result Body Mass Index 52.6 Neuro: Other: She is alert and awake with normal spontaneity of speech fluency comprehension and flat affect. There is minimal left-sided facial flatness and moderate to severe left arm weakness and minimal left leg weakness. Plantars are flexor. There is no visual or sensory extinction. Speech is normal. Objective Data Active Medications Acetaminophen (Acetaminophen 325 Mg Tablet) 650 mg PO Q6H PRN PRN Reason: Pain, Mild (Pain Scale 1-3), fever or headache Amlodipine Besylate (Amlodipine Besylate 5 Mg Tablet) 5 mg PO DAILY [facility]; Protocol Last Admin: 01/19/24 08:49 Dose: 5 mg Documented By: MARI Aspirin (Aspirin 81 Mg Tab.Chew) 81 mg PO DAILY [facility] Last Admin: 01/19/24 08:49 Dose: 81 mg Documented By: MARI Atorvastatin Calcium (Atorvastatin Calcium 40 Mg Tablet) 40 mg PO BEDTIME [facility] Last Admin: 01/18/24 21:14 Dose: 40 mg Documented By: CHAI Calcium Carbonate (Calcium Carbonate 750 Mg Tab.Chew) 750 mg PO Q4H PRN PRN Reason: Heartburn Enoxaparin Sodium (Enoxaparin Sodium 40 Mg/0.4 Ml Syringe) 40 mg SUBCUT Q24H [facility] Last Admin: 01/18/24 21:13 Dose: 40 mg Documented By: CHAI Magnesium Hydroxide (Milk Of Magnesia 30 Ml Oral.Susp) 30 ml PO DAILY PRN PRN Reason: Constipation Melatonin (Melatonin 3 Mg Tablet) 6 mg PO BEDTIME PRN PRN Reason: Insomnia Nystatin (Nystatin Powder 15 Gm Bottle) 1 appl TOPICAL TID [facility]; Protocol Last Admin: 01/19/24 08:50 Dose: 1 appl Documented By: MARI Ondansetron HCl (Ondansetron Hcl 4 Mg/2 Ml Vial) 4 mg IVPUSH Q8H PRN PRN Reason: Nausea and Vomiting Sodium Chloride (0.9 % Sodium Chloride Flush 3 Ml Syringe) 3 ml IVFLUSH QSHIFT [facility] Last Admin: 01/19/24 08:50 Dose: 3 ml Documented By: MARI Labs 01/18/24 06:02 01/18/24 06:02 Microbiology Microbiology Results: Microbiology 01/17/24 20:35 Urine Culture - Final Urine clean catch - Clean Catch Midstream Assessment and Plan (1) Left-sided weakness: Status: Acute Plan 58F PMH morbid obesity presented with left-sided weakness Left-sided weakness Acute infarct involving the right hemipons Continue aspirin statin plan for acute rehab Elevated blood pressures likely underlying htn will start amlodipine 5mg daily Morbid obesity Weight loss recommended DVT prophylaxis with Lovenox Full Code reason for continued hospitalization: setting up acute rehab Quality Stroke Does the patient have a stroke diagnosis?: No Reason for No Anti-thrombotic by Day Two: Contraindicated (Last known well time 48+ hours ago.) VTE Prior VTE?: No VTE Risk Level:: Medical - moderate - high VTE Device Contraindication: Treatment Not Indicated VTE Drug Contraindication: N/A - Med Ordered
--- NOTE | 2024-01-19 10:00 | MHC.SL.SWA ---
Speech Pathologist Impression: WFL Risk of Aspiration Due to: Neurological Condition Dysphasia Diet Status: Liquid Consistency and Strategies for Safe Swallow: Liquid Intake Recommendation: Thin Liquid Intake Strategies: Unrestricted Solid Food Consistency: Dietary Recommendations: Regular Additional Modifications to Solid Foods: Encourage patient to elect softer foods from regular menu. Oral Medication Intake: Whole with Liquid Please contact the pharmacy regarding appropriate crushable or liquid drug formulations that are available whenever modified delivery is recommended. Compensatory Strategies and Precautions to be Taken for Safe Swallow: Sitting Upright (90 deg) Small Bites and Sips Alternate Liquids/Solids Rate of Ingestion Change Supervision While Eating and Drinking for Safe Swallow: Intermittent Supervision Foods to Avoid: tough, crunchy textures. Swallowing Recommended Treatments: Compens. Strategy Educat. Recommendation for Speech: D/C Comment: Patient presents with oral motor and swallow function mostly WFL, however has poor dentition and elects to eat softer foods. Patient reports no change to speech or difficulty expressing self. D/C ST at this time, as patient is tolerating unmodified diet. Please re-refer with any changes or TEMPERATURE REGULATOR can be of further assistance. Courtroom Clerk Clinican/Clinical Fellow: No Supervisory Statement: I have reviewed and agree with the student/clinical fellow's documentation: N/A Speech Language Pathologist: Luda Rivera M.A., CCC-TEMPERATURE REGULATOR
[2024-01-19] MEDS: Atorvastatin Calcium 40 MG TABLET PO (20:54)
[2024-01-19] MEDS: Enoxaparin Sodium 40 MG/0.4 ML SYRINGE SUBCUT (20:54)
[2024-01-20 03:13] VITALS: BP 136/65; PULSE 55; RESP 18; TEMP 36.2; O2SAT 96
[2024-01-20 07:24] VITALS: BP 130/59; PULSE 69; RESP 18; TEMP 36.2; O2SAT 98
[2024-01-20] MEDS: amLODIPine Besylate 5 MG TABLET PO (08:17)
[2024-01-20] MEDS: Aspirin 81 MG TAB.CHEW PO (08:17)
[2024-01-20] MEDS: Nystatin Powder 15 GM BOTTLE 1 APPL TOPICAL ×3 (08:17→22:25)
[2024-01-20] MEDS: 0.9 % Sodium Chloride Flush 3 ML SYRINGE IVFLUSH ×3 (08:26→22:25)
--- NOTE | 2024-01-20 09:16 | P.PNIM_ITS ---
Subjective Subjective Date of Service: 01/20/24 Interval History: some improvement left weakness Physical Exam 2 Vital Signs: Vital Signs: Last Vital Signs Temp 97.2 F 01/20/24 07:24 Pulse 69 01/20/24 07:24 Resp 18 01/20/24 07:24 BP 130/59 L 01/20/24 07:24 Pulse Ox 98 01/20/24 07:24 O2 Del Method Room Air 01/20/24 07:24 O2 Flow Rate 4 01/18/24 21:34 BMI result Body Mass Index 52.6 Neuro: Other: She is alert and awake with normal spontaneity of speech fluency comprehension and flat affect. There is minimal left-sided facial flatness and moderate to severe left arm weakness and minimal left leg weakness. Plantars are flexor. There is no visual or sensory extinction. Speech is normal. Objective Data Active Medications Acetaminophen (Acetaminophen 325 Mg Tablet) 650 mg PO Q6H PRN PRN Reason: Pain, Mild (Pain Scale 1-3), fever or headache Amlodipine Besylate (Amlodipine Besylate 5 Mg Tablet) 5 mg PO DAILY [facility]; Protocol Last Admin: 01/20/24 08:17 Dose: 5 mg Documented By: QUIQUE Aspirin (Aspirin 81 Mg Tab.Chew) 81 mg PO DAILY [facility] Last Admin: 01/20/24 08:17 Dose: 81 mg Documented By: QUIQUE Atorvastatin Calcium (Atorvastatin Calcium 40 Mg Tablet) 40 mg PO BEDTIME [facility] Last Admin: 01/19/24 20:54 Dose: 40 mg Documented By: MIGUELANGEL Calcium Carbonate (Calcium Carbonate 750 Mg Tab.Chew) 750 mg PO Q4H PRN PRN Reason: Heartburn Enoxaparin Sodium (Enoxaparin Sodium 40 Mg/0.4 Ml Syringe) 40 mg SUBCUT Q24H [facility] Last Admin: 01/19/24 20:54 Dose: 40 mg Documented By: MIGUELANGEL Magnesium Hydroxide (Milk Of Magnesia 30 Ml Oral.Susp) 30 ml PO DAILY PRN PRN Reason: Constipation Melatonin (Melatonin 3 Mg Tablet) 6 mg PO BEDTIME PRN PRN Reason: Insomnia Nystatin (Nystatin Powder 15 Gm Bottle) 1 appl TOPICAL TID [facility]; Protocol Last Admin: 01/20/24 08:17 Dose: 1 appl Documented By: QUIQUE Ondansetron HCl (Ondansetron Hcl 4 Mg/2 Ml Vial) 4 mg IVPUSH Q8H PRN PRN Reason: Nausea and Vomiting Sodium Chloride (0.9 % Sodium Chloride Flush 3 Ml Syringe) 3 ml IVFLUSH QSHIFT [facility] Last Admin: 01/20/24 08:26 Dose: 3 ml Documented By: QUIQUE Labs 01/18/24 06:02 01/18/24 06:02 Microbiology Microbiology Results: Microbiology 01/17/24 20:35 Urine Culture - Final Urine clean catch - Clean Catch Midstream Assessment and Plan (1) Left-sided weakness: Status: Acute Plan 58F PMH morbid obesity presented with left-sided weakness Left-sided weakness Acute infarct involving the right hemipons Continue aspirin statin plan for acute rehab Elevated blood pressures likely underlying htn started amlodipine 5mg daily Morbid obesity Weight loss recommended DVT prophylaxis with Lovenox Full Code reason for continued hospitalization: setting up acute rehab Quality Stroke Does the patient have a stroke diagnosis?: No Reason for No Anti-thrombotic by Day Two: Contraindicated (Last known well time 48+ hours ago.) VTE Prior VTE?: No VTE Risk Level:: Medical - moderate - high VTE Device Contraindication: Treatment Not Indicated VTE Drug Contraindication: N/A - Med Ordered
--- NOTE | 2024-01-20 09:19 | P.DS_ITS ---
DS: Providers Provider Date of Service: 01/22/24 Date of admission: 01/17/24 20:30 Date of discharge: 01/22/24 Primary care physician: Camilla Poe MD Consults: 01/17/24 20:29 Consult to Neurology Routine Consulting Provider: [facility] Reason for consultation: ?acute cva DS: Diagnosis Discharge Diagnosis (1) Left-sided weakness: Status: Acute DS: Summary Hospital Course Hospital Course: from initial hpi: 58-year-old female with no reported significant PMH not on home meds who presents to the ED with?left-sided weakness. Pt reports symptoms began on Monday when she put her hair into a ponytail and thinks she pulled a muscle in either her back or neck. Woke up on Monday with pain in the back of her neck and shoulder that was alleviated with massaging. On Monday patient woke and found she had left-sided weakness. Reports ?walking into everything, since Monday, including walters, doors, and furniture. Today patient found she could not get out of her car due to left-sided weakness, and thus decided to present to the emergency room. Denies difficulty speaking, swelling, or facial droop. No numbness or tingling in extremities. Denies headache or acute vision changes. No dysarthria or difficulty word finding. 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 No chest pain/pressure, palpitations. No shortness a breath or difficulty breathing. Denies fever, chills, nausea, vomiting, abdominal pain. No changes to bowel or bladder habits. In the ED pt was hypertensive up to 187/75, vitals otherwise stable and WNL. Labs were significant for mildly elevated triglycerides, LDL, and low HDL. No leukocytosis. Stable H&H. No electrolyte abnormalities. Renal function WNL. CT?of head negative for acute intracranial hemorrhage or edematous territorial infarction, though did show [id number] nonspecific white matter changes. CTA of head/neck found no hemodynamically significant stenosis and no large vessel occlusion in either head or neck. EKG demonstrated normal sinus rhythm without significant ST elevations or depressions. Pt will be admitted to the hospital for left-sided weakness concerning for CVA. hospital course: Patient was admitted for acute CVA of the right jany kim. She was treated with aspirin statin. At time of discharge still has some residual left hemiparesis. Was seen by physical therapy recommended acute rehab to which she will be discharged. Seen by neurology recommended dual antiplatelet and statin. Dianne ient noted to have elevated blood pressures initially permissive hypertension was allowed but due to sustain blood pressures after 1-2 days was started on amlodipine 5 mg daily. For morbid obesity weight loss recommended. Time Attestation Discharge Coordination Time (in mins): 34 Quality: Safe Use of Opioids Does Pt have an Active Cancer Diagnosis on the Problem List?: No Quality: Stroke Does the patient have a stroke diagnosis?: Yes Reason for No Anti-thrombotic at DC: N/A - Med Ordered Reason for No Anticoagulant at DC: Drug treatment not indicated Reason Not Initiating IV-Tpa: Drug treatment not indicated Reason for No Anti-thrombotic by Day Two: N/A - Med Ordered Reason for No Statin at DC: N/A - Med Ordered Physical Exam Vital Signs: Vital Signs: Last Vital Signs Temp 97.2 F 01/20/24 07:24 Pulse 69 01/20/24 07:24 Resp 18 01/20/24 07:24 BP 130/59 L 01/20/24 07:24 Pulse Ox 98 01/20/24 07:24 O2 Del Method Room Air 01/20/24 07:24 O2 Flow Rate 4 01/18/24 21:34 BMI result Body Mass Index 52.6 Neuro: Other: She is alert and awake with normal spontaneity of speech fluency comprehension and flat affect. There is minimal left-sided facial flatness and moderate to severe left arm weakness and minimal left leg weakness. Plantars are flexor. There is no visual or sensory extinction. Speech is normal. Discharge Plan Discharge Anticipated Discharge Date/Time: 01/20/24 09:17 Patient Disposition: Xfer Inpatient Rehab Fac Discharge Diagnosis: cva Referrals: Camilla Poe MD [Primary Care Provider] - 1 Week Discharge Medications: New atorvastatin 40 mg Tablet 40 mg PO BEDTIME Qty: 0 0RF amlodipine 5 mg Tablet 5 mg PO DAILY Qty: 0 0RF Protocol: Hold for SBP< HOLD for SBP < : 90 aspirin 81 mg Tablet,Chewable 81 mg PO DAILY Qty: 0 0RF clopidogrel [Plavix] 75 mg tablet 75 mg PO DAILY Qty: 90 0RF Discharge Orders: Discharge Order (Routine); Ordered 01/20/24 Ordered By: Porfirio Nicholson Diet: Low salt diet Activity on Discharge: As tolerated Stand Alone Forms: Patient Portal Discharge page Print Language: Serbian Care Plan Goals: recovery Health Concerns: cva Plan of Treatment: dual antiplatele, statin, amlodipine, acute rehab Assessment: see above
--- NOTE | 2024-01-20 09:27 | MHC.CM.PN ---
[facility]SE SPOKE TO PTS SISTER, RICARDO, WHO REPORTS SHE IS PLANNING TO VISIT PT TODAY BUT WAS WORRIED SHE MAY BE LEAVING [facility] EXPLAINED INSURANCE HAS NOT AUTHORIZED REHAB OF YET, SO THERE IS NO TIME SET FOR DC SHE SAYS SHE WILL BE HERE EARLY THIS AFTERNOON [facility] ASSURED HER PT WOULD NOT BE DISCHARGED BEFORE SHE ARRIVES AND TRANSPORT COULD BE BOOKED FOR LATER IN THE DAY SO THEY CAN VISIT THE PLAN IS THE DC PT TO [facility] PENDING INSURANCE AUTHORIZATION
[2024-01-20 11:35] VITALS: BP 145/65; PULSE 60; RESP 16; TEMP 36.2; O2SAT 96
[2024-01-20 15:32] VITALS: BP 137/65; PULSE 71; RESP 20; TEMP 36.6; O2SAT 97
[2024-01-20 19:18] VITALS: BP 139/65; PULSE 71; RESP 18; TEMP 36.4; O2SAT 98
[2024-01-20] MEDS: Atorvastatin Calcium 40 MG TABLET PO (22:24)
[2024-01-20] MEDS: Enoxaparin Sodium 40 MG/0.4 ML SYRINGE SUBCUT (22:25)
[2024-01-20 23:14] VITALS: BP 150/69; PULSE 59; RESP 18; TEMP 36.1; O2SAT 98
[2024-01-21] VITALS (7 sets, daily range): BP systolic 123–168; BP diastolic 58–82; PULSE 62–74; RESP 15–20; TEMP 36.4–36.8; O2SAT 96–99
--- NOTE | 2024-01-21 08:25 | P.PNIM_ITS ---
Subjective Subjective Date of Service: 01/21/24 Interval History: Daily incremental improvement in left hemiparesis Physical Exam 2 Vital Signs: Vital Signs: Last Vital Signs Temp 98.3 F 01/21/24 07:46 Pulse 66 01/21/24 07:46 Resp 20 01/21/24 07:46 BP 167/78 H 01/21/24 07:46 Pulse Ox 99 01/21/24 07:46 O2 Del Method Room Air 01/21/24 07:46 O2 Flow Rate 4 01/18/24 21:34 BMI result Body Mass Index 52.6 Neuro: Other: She is alert and awake with normal spontaneity of speech fluency comprehension and flat affect. There is minimal left-sided facial flatness and moderate to severe left arm weakness and minimal left leg weakness. Plantars are flexor. There is no visual or sensory extinction. Speech is normal. Objective Data Active Medications Acetaminophen (Acetaminophen 325 Mg Tablet) 650 mg PO Q6H PRN PRN Reason: Pain, Mild (Pain Scale 1-3), fever or headache Amlodipine Besylate (Amlodipine Besylate 5 Mg Tablet) 5 mg PO DAILY [facility]; Protocol Last Admin: 01/20/24 08:17 Dose: 5 mg Documented By: QUIQUE Aspirin (Aspirin 81 Mg Tab.Chew) 81 mg PO DAILY [facility] Last Admin: 01/20/24 08:17 Dose: 81 mg Documented By: QUIQUE Atorvastatin Calcium (Atorvastatin Calcium 40 Mg Tablet) 40 mg PO BEDTIME [facility] Last Admin: 01/20/24 22:24 Dose: 40 mg Documented By: ANGELINA Calcium Carbonate (Calcium Carbonate 750 Mg Tab.Chew) 750 mg PO Q4H PRN PRN Reason: Heartburn Enoxaparin Sodium (Enoxaparin Sodium 40 Mg/0.4 Ml Syringe) 40 mg SUBCUT Q24H [facility] Last Admin: 01/20/24 22:25 Dose: 40 mg Documented By: ANGELINA Magnesium Hydroxide (Milk Of Magnesia 30 Ml Oral.Susp) 30 ml PO DAILY PRN PRN Reason: Constipation Melatonin (Melatonin 3 Mg Tablet) 6 mg PO BEDTIME PRN PRN Reason: Insomnia Nystatin (Nystatin Powder 15 Gm Bottle) 1 appl TOPICAL TID [facility]; Protocol Last Admin: 01/20/24 22:25 Dose: 1 appl Documented By: ANGELINA Ondansetron HCl (Ondansetron Hcl 4 Mg/2 Ml Vial) 4 mg IVPUSH Q8H PRN PRN Reason: Nausea and Vomiting Sodium Chloride (0.9 % Sodium Chloride Flush 3 Ml Syringe) [facility] Last Admin: 01/20/24 22:25 Dose: 3 ml Documented By: ANGELINA Labs 01/18/24 06:02 01/18/24 06:02 Assessment and Plan (1) Left-sided weakness: Status: Acute Plan 58F PMH morbid obesity presented with left-sided weakness Left-sided weakness Acute infarct involving the right hemipons Continue Plavix, aspirin statin plan for acute rehab Elevated blood pressures likely underlying htn started amlodipine 5mg daily Morbid obesity Weight loss recommended DVT prophylaxis with Lovenox Full Code reason for continued hospitalization: setting up acute rehab Quality Stroke Does the patient have a stroke diagnosis?: Yes Reason for No Anti-thrombotic by Day Two: N/A - Med Ordered VTE Prior VTE?: No VTE Risk Level:: Medical - moderate - high VTE Device Contraindication: Treatment Not Indicated VTE Drug Contraindication: N/A - Med Ordered
[2024-01-21] MEDS: amLODIPine Besylate 5 MG TABLET PO (09:42)
[2024-01-21] MEDS: Clopidogrel Bisulfate 75 MG TABLET PO (09:42)
[2024-01-21] MEDS: Aspirin 81 MG TAB.CHEW PO (09:42)
[2024-01-21] MEDS: Nystatin Powder 15 GM BOTTLE 1 APPL TOPICAL ×2 (09:43→14:57)
[2024-01-21] MEDS: Losartan Potassium 25 MG TABLET PO (14:55)
[2024-01-21] MEDS: Atorvastatin Calcium 40 MG TABLET PO (19:59)
[2024-01-21] MEDS: Enoxaparin Sodium 40 MG/0.4 ML SYRINGE SUBCUT (20:00)
[2024-01-22] VITALS: BP 148/67; PULSE 64; RESP 12; TEMP 37.2; O2SAT 98
[2024-01-22 04:00] VITALS: BP 136/66; PULSE 57; RESP 14; TEMP 36; O2SAT 99
[2024-01-22 07:19] VITALS: BP 154/72; PULSE 62; TEMP 36.4; O2SAT 99
[2024-01-22] MEDS: amLODIPine Besylate 5 MG TABLET PO (09:53)
[2024-01-22] MEDS: Losartan Potassium 25 MG TABLET PO (09:53)
[2024-01-22] MEDS: Aspirin 81 MG TAB.CHEW PO (09:54)
[2024-01-22] MEDS: Clopidogrel Bisulfate 75 MG TABLET PO (09:54)
[2024-01-22 11:00] VITALS: BP 135/70; PULSE 69; RESP 20; TEMP 36.5; O2SAT 99
[2024-01-22 15:53] VITALS: BP 126/66; PULSE 72; RESP 19; TEMP 36.7; O2SAT 98
--- NOTE | 2024-01-22 17:39 | HO.PM.IMPN ---
Subjective Subjective Date of Service: 01/22/24 Interval History: Daily incremental improvement in left hemiparesis Physical Exam Vital Signs: Vital Signs: Last Vital Signs Temp 98.0 F 01/22/24 15:53 Pulse 72 01/22/24 15:53 Resp 19 01/22/24 15:53 BP 126/66 01/22/24 15:53 Pulse Ox 98 01/22/24 15:53 O2 Del Method Room Air 01/22/24 15:53 O2 Flow Rate 4 01/18/24 21:34 BMI result Body Mass Index 52.6 Neuro: Other: She is alert and awake with normal spontaneity of speech fluency comprehension and flat affect. There is minimal left-sided facial flatness and moderate to severe left arm weakness and minimal left leg weakness. Plantars are flexor. There is no visual or sensory extinction. Speech is normal. Objective Data Active Medications Acetaminophen (Acetaminophen 325 Mg Tablet) 650 mg PO Q6H PRN PRN Reason: Pain, Mild (Pain Scale 1-3), fever or headache Amlodipine Besylate (Amlodipine Besylate 5 Mg Tablet) 5 mg PO DAILY [facility]; Protocol Last Admin: 01/22/24 09:53 Dose: 5 mg Documented By: BARRON Aspirin (Aspirin 81 Mg Tab.Chew) 81 mg PO DAILY [facility] Last Admin: 01/22/24 09:54 Dose: 81 mg Documented By: BARRON Atorvastatin Calcium (Atorvastatin Calcium 40 Mg Tablet) 40 mg PO BEDTIME [facility] Last Admin: 01/21/24 19:59 Dose: 40 mg Documented By: CHAI Calcium Carbonate (Calcium Carbonate 750 Mg Tab.Chew) 750 mg PO Q4H PRN PRN Reason: Heartburn Clopidogrel Bisulfate (Clopidogrel Bisulfate 75 Mg Tablet) 75 mg PO DAILY [facility] Last Admin: 01/22/24 09:54 Dose: 75 mg Documented By: BARRON Enoxaparin Sodium (Enoxaparin Sodium 40 Mg/0.4 Ml Syringe) 40 mg SUBCUT Q24H [facility] Last Admin: 01/21/24 20:00 Dose: 40 mg Documented By: CHAI Losartan Potassium (Losartan Potassium 25 Mg Tablet) 25 mg PO DAILY [facility]; Protocol Last Admin: 01/22/24 09:53 Dose: 25 mg Documented By: BARRON Magnesium Hydroxide (Milk Of Magnesia 30 Ml Oral.Susp) 30 ml PO DAILY PRN PRN Reason: Constipation Melatonin (Melatonin 3 Mg Tablet) 6 mg PO BEDTIME PRN PRN Reason: Insomnia Nystatin (Nystatin Powder 15 Gm Bottle) 1 appl TOPICAL TID [facility]; Protocol Last Admin: 01/21/24 20:05 Dose: Not Given Documented By: CHAI Non-Admin Reason: Patient Refused Ondansetron HCl (Ondansetron Hcl 4 Mg/2 Ml Vial) 4 mg IVPUSH Q8H PRN PRN Reason: Nausea and Vomiting Sodium Chloride (0.9 % Sodium Chloride Flush 3 Ml Syringe) 3 ml IVFLUSH QSHIFT [facility] Last Admin: 01/22/24 01:03 Dose: Not Given Documented By: CHAI Non-Admin Reason: No Access Labs 01/18/24 06:02 01/18/24 06:02 Assessment and Plan (1) Left-sided weakness: Status: Acute Plan 58F PMH morbid obesity presented with left-sided weakness Left-sided weakness Acute infarct involving the right hemipons Continue Plavix, aspirin statin plan for acute rehab Elevated blood pressures likely underlying htn started amlodipine 5mg daily Morbid obesity Weight loss recommended DVT prophylaxis with Lovenox Full Code reason for continued hospitalization: setting up acute rehab Quality Stroke Does the patient have a stroke diagnosis?: Yes Reason for No Anti-thrombotic by Day Two: N/A - Med Ordered VTE Prior VTE?: No VTE Risk Level:: Medical - moderate - high VTE Device Contraindication: Treatment Not Indicated VTE Drug Contraindication: N/A - Med Ordered
[2024-01-22] MEDS: Nystatin Powder 15 GM BOTTLE 1 APPL TOPICAL ×2 (18:49→18:50)
[2024-01-22 19:26] VITALS: BP 115/53; PULSE 83; RESP 16; TEMP 36.4; O2SAT 96
[2024-01-22] MEDS: Atorvastatin Calcium 40 MG TABLET PO (19:53)
[2024-01-22] MEDS: Enoxaparin Sodium 40 MG/0.4 ML SYRINGE SUBCUT (19:53)
[2024-01-23] VITALS (8 sets, daily range): BP systolic 135–176; BP diastolic 60–71; PULSE 55–111; RESP 16–20; TEMP 36.2–36.8; O2SAT 97–100
[2024-01-23] MEDS: Nystatin Powder 15 GM BOTTLE 1 APPL TOPICAL ×3 (09:16→21:11)
[2024-01-23] MEDS: Aspirin 81 MG TAB.CHEW PO (09:17)
[2024-01-23] MEDS: amLODIPine Besylate 5 MG TABLET PO (09:17)
[2024-01-23] MEDS: Clopidogrel Bisulfate 75 MG TABLET PO (09:17)
[2024-01-23] MEDS: Losartan Potassium 25 MG TABLET PO (09:25)
--- NOTE | 2024-01-23 11:23 | P.DS_ITS ---
DS: Providers Provider Date of Service: 01/25/24 Date of admission: 01/17/24 20:30 Date of discharge: 01/25/24 Primary care physician: Camilla Poe MD Consults: 01/17/24 20:29 Consult to Neurology Routine Consulting Provider: [facility] Reason for consultation: ?acute cva DS: Diagnosis Discharge Diagnosis (1) Left-sided weakness: Status: Acute (2) Cerebral infarction: Status: Acute DS: Summary Hospital Course Hospital Course: from initial hpi: 58-year-old female with no reported significant PMH not on home meds who presents to the ED with?left-sided weakness. Pt reports symptoms began on Monday when she put her hair into a ponytail and thinks she pulled a muscle in either her back or neck. Woke up on Monday with pain in the back of her neck and shoulder that was alleviated with massaging. On Monday patient woke and found she had left-sided weakness. Reports ?walking into everything, since Monday, including walters, doors, and furniture. Today patient found she could not get out of her car due to left-sided weakness, and thus decided to present to the emergency room. Denies difficulty speaking, swelling, or facial droop. No numbness or tingling in extremities. Denies headache or acute vision changes. No dysarthria or difficulty word finding. 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 No chest pain/pressure, palpitations. No shortness a breath or difficulty breathing. Denies fever, chills, nausea, vomiting, abdominal pain. No changes to bowel or bladder habits. In the ED pt was hypertensive up to 187/75, vitals otherwise stable and WNL. Labs were significant for mildly elevated triglycerides, LDL, and low HDL. No leukocytosis. Stable H&H. No electrolyte abnormalities. Renal function WNL. CT?of head negative for acute intracranial hemorrhage or edematous territorial infarction, though did show [id number] nonspecific white matter changes. CTA of head/neck found no hemodynamically significant stenosis and no large vessel occlusion in either head or neck. EKG demonstrated normal sinus rhythm without significant ST elevations or depressions. Pt will be admitted to the hospital for left-sided weakness concerning for CVA. hospital course: Patient was admitted for acute CVA of the right jany kim. She was treated with aspirin statin. At time of discharge still has some residual left hemiparesis. Was seen by physical therapy recommended acute rehab to which she will be discharged. Seen by neurology recommended dual antiplatelet and statin. Patient noted to have elevated blood pressures initially permissive hypertension was allowed but due to sustain blood pressures after 1-2 days was started on amlodipine 5 mg daily and Losartan 50 mg daily. For morbid obesity weight loss recommended. The patient will be discharged to home with VNA as she was denied acute rehab by insurance and SNF waiting for auth was too long for her. Discharge plan Dual antiplatelets with ASA and Plavix Amlodipine and Losartan for high blood pressure PT\OT at home follow with neurology as outpatient Time Attestation Discharge Coordination Time (in mins): 43 Quality: Safe Use of Opioids Does Pt have an Active Cancer Diagnosis on the Problem List?: No Quality: Stroke Does the patient have a stroke diagnosis?: Yes Reason for No Anti-thrombotic at DC: N/A - Med Ordered Reason for No Anticoagulant at DC: N/A - Med Ordered Reason Not Initiating IV-Tpa: Not indicated Reason for No Anti-thrombotic by Day Two: N/A - Med Ordered Reason for No Statin at DC: N/A - Med Ordered Physical Exam Vital Signs: Vital Signs: Last Vital Signs Temp 98.2 F 01/23/24 10:52 Pulse 65 01/23/24 10:52 Resp 18 01/23/24 10:52 BP 148/66 H 01/23/24 07:09 Pulse Ox 97 01/23/24 10:52 O2 Del Method Room Air 01/23/24 10:52 O2 Flow Rate 4 01/18/24 21:34 BMI result Body Mass Index 52.6 Const: Other: Constitutional : Awake, interactive, not in distress Neck : Normal inspection, Supple Cardiovascular : RRR, no JVP, no lower extremity edema Respiratory : good bilateral air entry, no crackles, wheezes or rhonchi Gastrointestinal: soft, lax, Normal bowel sounds, Non tender Skin : Warm, Dry Neurological : Alert & oriented x3, mild LUE weakness, Plantars are flexor. There is no visual or sensory extinction. Speech is normal. CN 2-12 within normal DS: Data Imaging MRI - head: Radiologist's impression: ITS Impressions Head CT 01/17/24 18:00 IMPRESSION: 1. No evidence of acute intracranial hemorrhage or edematous territorial infarction. 2. Mild to moderate nonspecific white matter changes. This critical result was discussed with LANCE Alcantara at 18:18 on 01/17/2024 and it was ascertained that the content and urgency of the report was understood at the time of direct communication. Electronically signed by: Bonilla Marrero DO 01/17/2024 06:21 PM EDT RP Head/Neck CTA 01/17/24 18:22 IMPRESSION: 1. No hemodynamically significant stenosis in the carotid or vertebral arteries in the neck. 2. No large vessel occlusion or significant stenosis within the intracranial circulation. Electronically signed by: Tracie Quiroz MD 01/17/2024 08:24 PM EDT RP Brain MRI 01/18/24 09:58 IMPRESSION: Acute infarct involving the right hemipons. No hemorrhagic transformation. Electronically signed by: Jaquelin Saini MD 01/18/2024 10:58 AM EDT RP Discharge Plan Discharge Anticipated Discharge Date/Time: 01/20/24 09:17 Patient Disposition: Home Health Service Discharge Diagnosis: cva Referrals: [facility] [Outside] - 1 Week Camilla Poe MD [Primary Care Provider] - 1 Week Discharge Medications: New clopidogrel [Plavix] 75 mg tablet 75 mg PO DAILY Qty: 90 0RF losartan 50 mg Tablet 50 mg PO DAILY Qty: 90 0RF Protocol: Hold for SBP< HOLD for SBP < : 90 atorvastatin 40 mg Tablet 40 mg PO BEDTIME Qty: 90 0RF amlodipine 5 mg Tablet 5 mg PO DAILY Qty: 90 0RF Protocol: Hold for SBP< HOLD for SBP < : 90 aspirin 81 mg Tablet,Chewable 81 mg PO DAILY Qty: 90 0RF Discharge Orders: Discharge Order (Routine); Ordered 01/25/24 Ordered By: Woo Wang Diet: Low salt diet Activity on Discharge: As tolerated Stand Alone Forms: Patient Portal Discharge page Print Language: Estonian Care Plan Goals: recovery Health Concerns: cva Plan of Treatment: dual antiplatele, statin Amlodipine and Losartan for high blood pressure PT\OT at home follow with neurology as outpatient Assessment: see above
--- NOTE | 2024-01-23 14:45 | MHC.CM.PN ---
Insurance auth for [facility] is still pending.
[2024-01-23] MEDS: Atorvastatin Calcium 40 MG TABLET PO (21:11)
[2024-01-23] MEDS: Enoxaparin Sodium 40 MG/0.4 ML SYRINGE SUBCUT (21:11)
[2024-01-24 03:15] VITALS: BP 174/93; PULSE 74; RESP 18; TEMP 36.3; O2SAT 96
[2024-01-24 07:40] VITALS: BP 146/67; PULSE 59; RESP 18; TEMP 36.2; O2SAT 96
--- NOTE | 2024-01-24 08:16 | HO.PM.IMPN ---
Subjective Subjective Date of Service: 01/23/24 Interval History: LATE ENTRY The patient was planned to be discharged but no insurace auth yet Feels better , improvement in left sided weakness no other events Physical Exam Vital Signs: Vital Signs: Last Vital Signs Temp 97.1 F 01/24/24 07:40 Pulse 59 01/24/24 07:40 Resp 18 01/24/24 07:40 BP 146/67 H 01/24/24 07:40 Pulse Ox 96 01/24/24 07:40 O2 Del Method Room Air 01/24/24 07:40 O2 Flow Rate 4 01/18/24 21:34 BMI result Body Mass Index 52.6 Const: Other: Constitutional : Awake, interactive, not in distress Neck : Normal inspection, Supple Cardiovascular : RRR, no JVP, no lower extremity edema Respiratory : good bilateral air entry, no crackles, wheezes or rhonchi Gastrointestinal: soft, lax, Normal bowel sounds, Non tender Skin : Warm, Dry Neurological : Alert & oriented x3, mild LUE weakness, Plantars are flexor. There is no visual or sensory extinction. Speech is normal. CN 2-12 within normal Objective Data Active Medications Acetaminophen (Acetaminophen 325 Mg Tablet) 650 mg PO Q6H PRN PRN Reason: Pain, Mild (Pain Scale 1-3), fever or headache Amlodipine Besylate (Amlodipine Besylate 5 Mg Tablet) 5 mg PO DAILY [facility]; Protocol Last Admin: 01/23/24 09:17 Dose: 5 mg Documented By: BARRON Aspirin (Aspirin 81 Mg Tab.Chew) 81 mg PO DAILY [facility] Last Admin: 01/23/24 09:17 Dose: 81 mg Documented By: BARRON Atorvastatin Calcium (Atorvastatin Calcium 40 Mg Tablet) 40 mg PO BEDTIME [facility] Last Admin: 01/23/24 21:11 Dose: 40 mg Documented By: KANDIS Calcium Carbonate (Calcium Carbonate 750 Mg Tab.Chew) 750 mg PO Q4H PRN PRN Reason: Heartburn Clopidogrel Bisulfate (Clopidogrel Bisulfate 75 Mg Tablet) 75 mg PO DAILY [facility] Last Admin: 01/23/24 09:17 Dose: 75 mg Documented By: BARRON Enoxaparin Sodium (Enoxaparin Sodium 40 Mg/0.4 Ml Syringe) 40 mg SUBCUT Q24H [facility] Last Admin: 01/23/24 21:11 Dose: 40 mg Documented By: KANDIS Losartan Potassium (Losartan Potassium 25 Mg Tablet) 25 mg PO DAILY [facility]; Protocol Last Admin: 01/23/24 09:25 Dose: 25 mg Documented By: BARRON Magnesium Hydroxide (Milk Of Magnesia 30 Ml Oral.Susp) 30 ml PO DAILY PRN PRN Reason: Constipation Melatonin (Melatonin 3 Mg Tablet) 6 mg PO BEDTIME PRN PRN Reason: Insomnia Nystatin (Nystatin Powder 15 Gm Bottle) 1 appl TOPICAL TID [facility]; Protocol Last Admin: 01/23/24 21:11 Dose: 1 appl Documented By: KANDIS Ondansetron HCl (Ondansetron Hcl 4 Mg/2 Ml Vial) 4 mg IVPUSH Q8H PRN PRN Reason: Nausea and Vomiting Sodium Chloride (0.9 % Sodium Chloride Flush 3 Ml Syringe) 3 ml IVFLUSH QSHIFT [facility] Last Admin: 01/23/24 21:12 Dose: Not Given Documented By: KANDIS Non-Admin Reason: No Access Labs 01/18/24 06:02 01/18/24 06:02 Assessment and Plan (1) Left-sided weakness: Status: Acute (2) Cerebral infarction: Status: Acute Plan 58F PMH morbid obesity presented with left-sided weakness Left-sided weakness Acute infarct involving the right hemipons Continue Plavix, aspirin statin plan for acute rehab Elevated blood pressures likely underlying htn started amlodipine 5mg daily Morbid obesity Weight loss recommended DVT prophylaxis with Lovenox Full Code reason for continued hospitalization: setting up acute rehab Quality Stroke Does the patient have a stroke diagnosis?: Yes Reason for No Anti-thrombotic by Day Two: N/A - Med Ordered VTE Prior VTE?: No VTE Risk Level:: Medical - moderate - high VTE Device Contraindication: Treatment Not Indicated VTE Drug Contraindication: N/A - Med Ordered
[2024-01-24] MEDS: Clopidogrel Bisulfate 75 MG TABLET PO (08:20)
[2024-01-24] MEDS: Aspirin 81 MG TAB.CHEW PO (08:20)
[2024-01-24] MEDS: Losartan Potassium 25 MG TABLET PO (08:20)
[2024-01-24] MEDS: amLODIPine Besylate 5 MG TABLET PO (08:21)
[2024-01-24] MEDS: Nystatin Powder 15 GM BOTTLE 1 APPL TOPICAL ×3 (08:27→20:49)
[2024-01-24 11:17] VITALS: BP 144/75; PULSE 66; RESP 19; TEMP 36.2; O2SAT 97
--- NOTE | 2024-01-24 11:55 | HO.PM.IMPN ---
Subjective Subjective Date of Service: 01/24/24 Interval History: Seen and evaluated Denied Auth for acute rehab, pending SNF placement Feels better , improvement in left sided weakness no other events Review of Systems Review of Systems: Yes all other systems are reviewed and are negative Physical Exam Vital Signs: Vital Signs: Last Vital Signs Temp 97.2 F 01/24/24 11:17 Pulse 66 01/24/24 11:17 Resp 19 01/24/24 11:17 BP 144/75 H 01/24/24 11:17 Pulse Ox 97 01/24/24 11:17 O2 Del Method Room Air 01/24/24 11:17 O2 Flow Rate 4 01/18/24 21:34 BMI result Body Mass Index 52.6 Const: Other: Constitutional : Awake, interactive, not in distress Neck : Normal inspection, Supple Cardiovascular : RRR, no JVP, no lower extremity edema Respiratory : good bilateral air entry, no crackles, wheezes or rhonchi Gastrointestinal: soft, lax, Normal bowel sounds, Non tender Skin : Warm, Dry Neurological : Alert & oriented x3, mild LUE weakness, Plantars are flexor. There is no visual or sensory extinction. Speech is normal. CN 2-12 within normal Objective Data Active Medications Acetaminophen (Acetaminophen 325 Mg Tablet) 650 mg PO Q6H PRN PRN Reason: Pain, Mild (Pain Scale 1-3), fever or headache Amlodipine Besylate (Amlodipine Besylate 5 Mg Tablet) 5 mg PO DAILY [facility]; Protocol Last Admin: 01/24/24 08:21 Dose: 5 mg Documented By: MARI Aspirin (Aspirin 81 Mg Tab.Chew) 81 mg PO DAILY [facility] Last Admin: 01/24/24 08:20 Dose: 81 mg Documented By: MARI Atorvastatin Calcium (Atorvastatin Calcium 40 Mg Tablet) 40 mg PO BEDTIME [facility] Last Admin: 01/23/24 21:11 Dose: 40 mg Documented By: KANDIS Calcium Carbonate (Calcium Carbonate 750 Mg Tab.Chew) 750 mg PO Q4H PRN PRN Reason: Heartburn Clopidogrel Bisulfate (Clopidogrel Bisulfate 75 Mg Tablet) 75 mg PO DAILY [facility] Last Admin: 01/24/24 08:20 Dose: 75 mg Documented By: MARI Enoxaparin Sodium (Enoxaparin Sodium 40 Mg/0.4 Ml Syringe) 40 mg SUBCUT Q24H [facility] Last Admin: 01/23/24 21:11 Dose: 40 mg Documented By: KANDIS Losartan Potassium (Losartan Potassium 25 Mg Tablet) 25 mg PO DAILY [facility]; Protocol Last Admin: 01/24/24 08:20 Dose: 25 mg Documented By: MARI Magnesium Hydroxide (Milk Of Magnesia 30 Ml Oral.Susp) 30 ml PO DAILY PRN PRN Reason: Constipation Melatonin (Melatonin 3 Mg Tablet) 6 mg PO BEDTIME PRN PRN Reason: Insomnia Nystatin (Nystatin Powder 15 Gm Bottle) 1 appl TOPICAL TID [facility]; Protocol Last Admin: 01/24/24 08:27 Dose: 1 appl Documented By: MARI Ondansetron HCl (Ondansetron Hcl 4 Mg/2 Ml Vial) 4 mg IVPUSH Q8H PRN PRN Reason: Nausea and Vomiting Sodium Chloride (0.9 % Sodium Chloride Flush 3 Ml Syringe) 3 ml IVFLUSH QSHIFT [facility] Last Admin: 01/24/24 08:21 Dose: Not Given Documented By: MARI Non-Admin Reason: No Access Labs 01/18/24 06:02 01/18/24 06:02 Assessment and Plan (1) Left-sided weakness: Status: Acute (2) Cerebral infarction: Status: Acute Plan 58F PMH morbid obesity presented with left-sided weakness Left-sided weakness Acute infarct involving the right hemipons Continue Plavix, aspirin statin plan for acute rehab Continue PT Uncontrolled HTN started amlodipine 5mg daily Morbid obesity Weight loss recommended DVT prophylaxis with Lovenox Full Code reason for continued hospitalization: setting up [facility] Quality Stroke Does the patient have a stroke diagnosis?: Yes Reason for No Anti-thrombotic by Day Two: N/A - Med Ordered VTE Prior VTE?: No VTE Risk Level:: Medical - moderate - high VTE Device Contraindication: Treatment Not Indicated VTE Drug Contraindication: N/A - Med Ordered
--- NOTE | 2024-01-24 12:50 | MHC.CM.PN ---
Per rounds, pt. has been medically cleared to go to [facility]. Acute rehab was recommended, and her ins. did not authorize. Referrals out for [facility], accepted at [facility], awaiting auth.
[2024-01-24 15:28] VITALS: BP 135/71; PULSE 74; RESP 16; TEMP 36.6; O2SAT 98
[2024-01-24 19:20] VITALS: BP 143/63; PULSE 77; RESP 18; TEMP 36.1; O2SAT 97
[2024-01-24] MEDS: Atorvastatin Calcium 40 MG TABLET PO (20:49)
[2024-01-24] MEDS: Enoxaparin Sodium 40 MG/0.4 ML SYRINGE SUBCUT (20:49)
[2024-01-24 23:43] VITALS: BP 139/65; PULSE 75; RESP 18; TEMP 36.5; O2SAT 98
[2024-01-25 03:30] VITALS: BP 149/65; PULSE 75; RESP 18; TEMP 36.6; O2SAT 99
[2024-01-25 08:00] VITALS: BP 178/98; PULSE 73; RESP 20; TEMP 35.9; O2SAT 98
[2024-01-25] MEDS: Aspirin 81 MG TAB.CHEW PO (09:44)
[2024-01-25] MEDS: Clopidogrel Bisulfate 75 MG TABLET PO (09:44)
[2024-01-25] MEDS: amLODIPine Besylate 5 MG TABLET PO (09:45)
[2024-01-25] MEDS: Losartan Potassium 50 MG TABLET PO (09:45)
--- NOTE | 2024-01-25 10:46 | P.PNIM_ITS ---
Subjective Subjective Date of Service: 01/25/24 Interval History: Seen and evaluated Denied Auth for acute rehab, pending SNF placement Feels better , improvement in left sided weakness no other events Physical Exam 2 Vital Signs: Vital Signs: Last Vital Signs Temp 96.7 F L 01/25/24 08:00 Pulse 73 01/25/24 08:00 Resp 20 01/25/24 08:00 BP 178/98 H 01/25/24 08:00 Pulse Ox 98 01/25/24 08:00 O2 Del Method Room Air 01/25/24 08:00 O2 Flow Rate 4 01/18/24 21:34 BMI result Body Mass Index 52.6 Const: Other: Constitutional : Awake, interactive, not in distress Neck : Normal inspection, Supple Cardiovascular : RRR, no JVP, no lower extremity edema Respiratory : good bilateral air entry, no crackles, wheezes or rhonchi Gastrointestinal: soft, lax, Normal bowel sounds, Non tender Skin : Warm, Dry Neurological : Alert & oriented x3, mild LUE weakness, Plantars are flexor. There is no visual or sensory extinction. Speech is normal. CN 2-12 within normal Objective Data Active Medications Acetaminophen (Acetaminophen 325 Mg Tablet) 650 mg PO Q6H PRN PRN Reason: Pain, Mild (Pain Scale 1-3), fever or headache Amlodipine Besylate (Amlodipine Besylate 5 Mg Tablet) 5 mg PO DAILY [facility]; Protocol Last Admin: 01/25/24 09:45 Dose: 5 mg Documented By: SUSU Aspirin (Aspirin 81 Mg Tab.Chew) 81 mg PO DAILY [facility] Last Admin: 01/25/24 09:44 Dose: 81 mg Documented By: SUSU Atorvastatin Calcium (Atorvastatin Calcium 40 Mg Tablet) 40 mg PO BEDTIME [facility] Last Admin: 01/24/24 20:49 Dose: 40 mg Documented By: EDILSON Calcium Carbonate (Calcium Carbonate 750 Mg Tab.Chew) 750 mg PO Q4H PRN PRN Reason: Heartburn Clopidogrel Bisulfate (Clopidogrel Bisulfate 75 Mg Tablet) 75 mg PO DAILY [facility] Last Admin: 01/25/24 09:44 Dose: 75 mg Documented By: SUSU Enoxaparin Sodium (Enoxaparin Sodium 40 Mg/0.4 Ml Syringe) 40 mg SUBCUT Q24H [facility] Last Admin: 01/24/24 20:49 Dose: 40 mg Documented By: EDILSON Losartan Potassium (Losartan Potassium 50 Mg Tablet) 50 mg PO DAILY [facility]; Protocol Last Admin: 01/25/24 09:45 Dose: 50 mg Documented By: SSUU Magnesium Hydroxide (Milk Of Magnesia 30 Ml Oral.Susp) 30 ml PO DAILY PRN PRN Reason: Constipation Melatonin (Melatonin 3 Mg Tablet) 6 mg PO BEDTIME PRN PRN Reason: Insomnia Nystatin (Nystatin Powder 15 Gm Bottle) 1 appl TOPICAL TID [facility]; Protocol Last Admin: 01/24/24 20:49 Dose: 1 appl Documented By: EDILSON Ondansetron HCl (Ondansetron Hcl 4 Mg/2 Ml Vial) 4 mg IVPUSH Q8H PRN PRN Reason: Nausea and Vomiting Sodium Chloride (0.9 % Sodium Chloride Flush 3 Ml Syringe) 3 ml IVFLUSH QSHIFT [facility] Last Admin: 01/25/24 09:45 Dose: Not Given Documented By: SUSU Non-Admin Reason: No Access Labs 01/18/24 06:02 01/18/24 06:02 Assessment and Plan (1) Left-sided weakness: Status: Acute (2) Cerebral infarction: Status: Acute Plan 58F PMH morbid obesity presented with left-sided weakness Left-sided weakness Acute infarct involving the right hemipons Continue Plavix, aspirin statin plan for acute rehab Continue PT Uncontrolled HTN started amlodipine 5mg daily Increase Losartan to 50 mg daily Morbid obesity Weight loss recommended DVT prophylaxis with Lovenox Full Code reason for continued hospitalization: setting up [facility] Quality Stroke Does the patient have a stroke diagnosis?: Yes Reason for No Anti-thrombotic by Day Two: N/A - Med Ordered VTE Prior VTE?: No VTE Risk Level:: Medical - moderate - high VTE Device Contraindication: Treatment Not Indicated VTE Drug Contraindication: N/A - Med Ordered
[2024-01-25 12:00] VITALS: BP 151/62; PULSE 75; RESP 20; TEMP 36.3; O2SAT 98
--- NOTE | 2024-01-25 15:07 | P.F2F_ITS ---
Service Date Service Date: 01/25/24 Encounter Date of encounter: 01/25/24 Reasons for Services Signs and symptoms assessed: Acute stroke Elevated blood pressure Reason for penitentiary: neurological assessment Reason for physical therapy: home safety and mobility and therapeutic exercises Reason for occupational therapy: home safety and mobility and therapeutic exercises Homebound: Leaving the home is medically contraindicated at this time without the asist of a device and/or another person due th the listed conditions above and below. Reason homebound: unsteady gait / fall risk Certification: Based on the above findings, I certify that this patient is confined to the home and needs intermittent penitentiary care, physical therapy and/or speech therapy, or continues to need occupational therapy. The patient is under my care, and I have initiated the establishment of the plan of care. The patient will be followed by a physician who will periodically review the plan of care. Time Spent With Patient Time: Total time managing care of this patient today ____ minutes.
--- NOTE | 2024-01-25 15:12 | MHC.CM.PN ---
Second IMM 01/25/24, Pt has been medically cleared for DC, she has decided to go home, has been waiting for ins. auth for STR, but is doing better, will go home via family transport and have services from [facility].
== END 2024-01-25 17:48 | disposition home health service (06) | DRG 65 ==
LOC: HO.ED 20:43 → HO.EDOVER 21:40 → HO.IMC 23:13
PROVIDERS: Physician Assistant Medical; Admitting Provider Student in an Organized Health Care Education/Training Program; Emergency Provider Student in an Organized Health Care Education/Training Program; PCP Family Medicine; Visit Provider Student in an Organized Health Care Education/Training Program
DX: I63.02 Cerebral infarction due to thrombosis of basilar artery (principal); G81.94 Hemiplegia, unspecified affecting left nondominant side; Z68.43 Body mass index [BMI] 50.0-59.9, adult; I10 Essential (primary) hypertension; E66.01 Morbid (severe) obesity due to excess calories
CPT/HCPCS: 36415; 70450; 70496; 70498; 70551; 80048; 80061; 80307; 81001; 82947; 83036; 84484; 85025; 85027; 85610; 85730; 87086; 92526; 92610; 93005; 93306; 97112; 97116; 97162; 97166; 97530; 97535; 99285; J1650; Q9957; Q9967

== ENCOUNTER → 2024-01-17 17:55 | Outpatient (BNV) | payer MEDICARE, MEDICAID, SELFPAY | PROVIDERS: Admitting Provider Student in an Organized Health Care Education/Training Program; Emergency Provider Student in an Organized Health Care Education/Training Program; PCP Family Medicine; Visit Provider Internal Medicine Cardiovascular Disease | DX: I45.10 Unspecified right bundle-branch block (principal) | CPT/HCPCS: 93010 ==

== ENCOUNTER 2024-01-17 20:30 | Outpatient (BNV) | payer MEDICARE, MEDICAID, SELFPAY | END 2024-01-18 13:00 | PROVIDERS: Admitting Provider Student in an Organized Health Care Education/Training Program; Emergency Provider Student in an Organized Health Care Education/Training Program; PCP Family Medicine; Visit Provider Internal Medicine Cardiovascular Disease | DX: I63.9 Cerebral infarction, unspecified (principal); R93.1 Abnormal findings on diagnostic imaging of heart and coronary circulation | CPT/HCPCS: 93306 ==

== ENCOUNTER → 2024-01-17 20:30 | Outpatient (BNV) | payer MEDICARE, MEDICAID, SELFPAY | PROVIDERS: Admitting Provider Student in an Organized Health Care Education/Training Program; Emergency Provider Student in an Organized Health Care Education/Training Program; PCP Family Medicine; Visit Provider Psychiatry & Neurology Neurology | DX: I63.02 Cerebral infarction due to thrombosis of basilar artery (principal) | CPT/HCPCS: 99222 ==

== ENCOUNTER → 2024-01-17 20:30 | Outpatient (BNV) | payer MEDICARE, MEDICAID, SELFPAY | PROVIDERS: Admitting Provider Student in an Organized Health Care Education/Training Program; Emergency Provider Student in an Organized Health Care Education/Training Program; PCP Family Medicine; Visit Provider Student in an Organized Health Care Education/Training Program | DX: I63.02 Cerebral infarction due to thrombosis of basilar artery (principal); I69.354 Hemiplegia and hemiparesis following cerebral infarction affecting left non-dominant side | CPT/HCPCS: 99223; 99232; 99233; 99239; G0180 ==